=== PATIENT | male | born 1950 | race Caucasian/White ===

== ENCOUNTER → 2017-12-12 07:30 | Outpatient (CLI) | payer MEDICARE, OTHER, SELFPAY ==
[2017-12-12 10:00] LABS: Add Manual Diff / Slide Review NO; Basophils Percent Auto 0.6 % (0-2); Eosinophils Percent Auto 4.9 % (2-4); Hematocrit 47.3 % (41-53); Hemoglobin 16.4 g/dL (13.5-17.5); Lymphocytes Percent Auto 21.5 % (25-40); Mean Corpuscular HGB Conc 34.6 % (30-36); Mean Corpuscular Hemoglobin 34.6 PG (26-34); Mean Corpuscular Volume 99.9 fL (80-100); Monocytes Percent Auto 8.1 % (3-14); Neutrophils Absolute Auto 4800 /uL (3000-5900); Neutrophils Percent Auto 64.9 % (50-75); Platelet Count 245 X10^3/uL (150-400); Red Blood Cell Count 4.74 X10^6/uL (4.5-5.9); Red Cell Distribution Width 12.9 % (11.6-14.8); White Blood Cell Count 7.3 X10^3/uL (4.5-11.0)
[2017-12-12 10:31] LABS: Alanine Aminotransferase 33 IU/L (21-72); Albumin 4.5 g/dL (3.5-5.0); Albumin Globulin Ratio 1.6 (1.0-2.8); Alkaline Phosphatase 70 U/L (38-126); Aspartate Aminotransferase 30 IU/L (17-59); BUN Creatinine Ratio 12.5 (6-22); Bilirubin Total 0.7 mg/dL (0.2-1.3); Blood Urea Nitrogen 10 mg/dL (9-20); Calcium 9.1 mg/dL (8.4-10.2); Carbon Dioxide 27 mmol/L (22-32); Chloride 104 mmol/L (98-107); Cholesterol 136 mg/dL (140-199); Estimated Glomerular Filt Rate > 60.0 mL/min (>60); Globulin 2.9 g/dL (1.7-4.1); Glucose 77 mg/dL (80-110); HDL Cholesterol 74 mg/dL (40-60); HEMOLYSIS < 15 (0-50); LDL Cholesterol Calculated 47 mg/dL (<100); Potassium 4.1 mmol/L (3.4-5.1); Sodium 141 mmol/L (137-145); Total Protein 7.4 g/dL (6.3-8.2); Triglycerides 76 mg/dL (35-150)
[2017-12-12 11:16] LABS: Hep C Virus Ab w/Reflex Quant NEGATIVE s/c (NEGATIVE)
== END ==
PROVIDERS: PCP Internal Medicine; Visit Provider Internal Medicine
DX: I10 Essential (primary) hypertension (principal); E78.00 Pure hypercholesterolemia, unspecified
CPT/HCPCS: 36415; 80053; 80061; 82248; 85025; 86803

== ENCOUNTER → 2018-01-09 08:06 | Outpatient (CLI) | payer MEDICARE, OTHER, SELFPAY ==
--- NOTE | 2018-01-09 | DI.US.S_ITS ---
PROCEDURE: US ABD AORTA ANEURYSM SCREEN INDICATIONS: SCREENING TECHNIQUE: Real time scanning was performed of the aorta and iliac arteries, with image documentation. COMPARISON: [facility], CT, ABDOMEN/PELVIS WITH CONTRAST, 05/20/2016, 8:20. [facility], US, RENAL COMPLETE, 07/09/2016, 13:21. FINDINGS: Aorta: Proximal aortic diameter measures 2.1 cm. Mid-aorta measures 1.7 cm. Distal aortic diameter is 1.3 cm. Iliac arteries: Right common iliac artery measures 1.2 cm. Left common iliac artery measures 1.2 cm. IMPRESSION: Negative for aneurysm. Dictated by: Foster Vasquez M.D. on 01/09/2018 at 10:00 Approved by: Foster Vasquez M.D. on 01/09/2018 at 10:01
== END ==
PROVIDERS: PCP Internal Medicine; Visit Provider Internal Medicine
DX: Z13.6 Encounter for screening for cardiovascular disorders (principal)
CPT/HCPCS: 76706

== ENCOUNTER → 2018-08-07 08:27 | Outpatient (CLI) | payer MEDICARE, OTHER, SELFPAY | PROVIDERS: PCP Internal Medicine | DX: I67.1 Cerebral aneurysm, nonruptured (principal) | CPT/HCPCS: 36415; 86850; 86900; 86901 ==

== ENCOUNTER → 2018-08-11 15:18 | Outpatient (CLI) | payer MEDICARE, OTHER, SELFPAY ==
[2018-08-11 15:57] LABS: Add Manual Diff / Slide Review NO; Basophils Absolute Auto 0 /uL (0-100); Basophils Percent Auto 0.4 % (0-2); Eosinophils Absolute Auto 200 /uL (0-450); Eosinophils Percent Auto 2.2 % (2-4); Hematocrit 44.6 % (41-53); Hemoglobin 14.9 g/dL (13.5-17.5); Lymphocytes Absolute Auto 1700 /uL (1100-4500); Lymphocytes Percent Auto 22.1 % (25-40); Mean Corpuscular HGB Conc 33.5 % (30-36); Mean Corpuscular Volume 98.5 fL (80-100); Monocytes Absolute Auto 800 /uL (0-900); Monocytes Percent Auto 10.5 % (3-14); Neutrophils Absolute Auto 5000 /uL (1500-7000); Neutrophils Percent Auto 64.8 % (50-75); Platelet Count 288 X10^3/uL (150-400); Red Blood Cell Count 4.53 X10^6/uL (4.5-5.9); Red Cell Distribution Width 14.5 % (11.6-14.8); White Blood Cell Count 7.7 X10^3/uL (4.5-11.0)
[2018-08-11 16:03] LABS: Prothrombin Time 11.4 SECONDS (10.1-12.7)
[2018-08-11 16:11] LABS: Alanine Aminotransferase 33 IU/L (21-72); Albumin 4.5 g/dL (3.5-5.0); Albumin Globulin Ratio 1.6 (1.0-2.8); Alkaline Phosphatase 86 U/L (38-126); Aspartate Aminotransferase 31 IU/L (17-59); Bilirubin Total 0.4 mg/dL (0.2-1.3); Blood Urea Nitrogen 19 mg/dL (9-20); Calcium 9.8 mg/dL (8.4-10.2); Carbon Dioxide 28 mmol/L (22-32); Chloride 103 mmol/L (98-107); Estimated Glomerular Filt Rate > 60.0 mL/min (>60); Globulin 2.8 g/dL (1.7-4.1); Glucose 105 mg/dL (80-110); HEMOLYSIS < 15 (0-50); Potassium 4.5 mmol/L (3.4-5.1); Sodium 140 mmol/L (137-145); Total Protein 7.3 g/dL (6.3-8.2)
== END ==
PROVIDERS: Visit Provider Physician Assistant Surgical
DX: I67.1 Cerebral aneurysm, nonruptured (principal)
CPT/HCPCS: 80053; 85025; 85610

== ENCOUNTER → 2019-10-15 14:56 | Outpatient (CLI) | payer MEDICARE, OTHER, SELFPAY ==
[2019-10-16 08:43] LABS: COVID19 Sendout Not Detected (Not Detect)
== END ==
PROVIDERS: Visit Provider Nurse Practitioner
DX: R05 Cough (principal)
CPT/HCPCS: 87635

== ENCOUNTER → 2020-01-27 15:55 | Outpatient (ROUT) | payer MEDICARE, OTHER, SELFPAY ==
[2020-01-28 07:41] LABS: COVID19 Sendout Not Detected (Not Detect)
== END ==
PROVIDERS: Visit Provider Physician Assistant
DX: Z11.59 Encounter for screening for other viral diseases (principal)
CPT/HCPCS: 87635

== ENCOUNTER → 2020-02-21 09:09 | Outpatient (CLI) | payer MEDICARE, OTHER, SELFPAY ==
[2020-02-21 10:39] LABS: Cholesterol 150 mg/dL (140-199); HDL Cholesterol 97 mg/dL (40-60); LDL Cholesterol Calculated 39 mg/dL (<100); Triglycerides 70 mg/dL (35-150)
== END ==
PROVIDERS: Referring Provider Internal Medicine; Visit Provider Internal Medicine
DX: E78.00 Pure hypercholesterolemia, unspecified (principal)
CPT/HCPCS: 36415; 80061

== ENCOUNTER 2021-07-17 08:36 | Observation (INO) | payer MEDICARE, OTHER, SELFPAY ==
[2021-07-17] VITALS (25 sets, daily range): BP systolic 98–214; BP diastolic 61–129; PULSE 75–158; RESP 16–25; TEMP 37–38.1; O2SAT 88–100; BMI 22.9; BMI 22.4
--- NOTE | 2021-07-17 09:01 | DI.RAD.S_ITS ---
PROCEDURE: XR CHEST 1V INDICATIONS: suspected sepsis TECHNIQUE: One view of the chest was acquired. COMPARISON: [facility], CHEST 2 VIEW, 01/16/2007, 11:41. [facility], CHEST 1 VIEW, 06/14/2016, 22:12. FINDINGS: Surgical changes and devices: None. Lungs and pleura: Blunting of the right costophrenic angle which may represent a small right pleural effusion. No focal consolidations. No pneumothorax. Lungs are otherwise clear. Mediastinum: Mediastinal contours appear normal. Heart size is normal. Bones and chest wall: No suspicious bony lesions. Overlying soft tissues appear unremarkable. IMPRESSION: Suspected small right pleural effusion. Otherwise, no acute cardiopulmonary abnormalities or focal consolidations. Dictated by: Jere Hernandez M.D. on 07/17/2021 at 9:19 Approved by: Jere Hernandez M.D. on 07/17/2021 at 9:20
[2021-07-17 09:10] LABS: Add Manual Diff / Slide Review NO; Basophils Absolute Auto 100 /uL (0-100); Basophils Percent Auto 0.5 % (0-2); Eosinophils Absolute Auto 0 /uL (0-450); Eosinophils Percent Auto 0.4 % (2-4); Hematocrit 40.7 % (41-53); Hemoglobin 14.2 g/dL (13.5-17.5); Lymphocytes Absolute Auto 600 /uL (1100-4500); Lymphocytes Percent Auto 5.1 % (25-40); Mean Corpuscular HGB Conc 34.9 % (30-36); Mean Corpuscular Hemoglobin 34.9 PG (26-34); Monocytes Absolute Auto 1100 /uL (0-900); Monocytes Percent Auto 9.5 % (3-14); Neutrophils Absolute Auto 9500 /uL (1500-7000); Neutrophils Percent Auto 84.5 % (50-75); Platelet Count 188 X10^3/uL (150-400); Red Blood Cell Count 4.07 X10^6/uL (4.5-5.9); White Blood Cell Count 11.3 X10^3/uL (4.5-11.0)
--- NOTE | 2021-07-17 09:10 | ED_ITS ---
HPI - Male Genitourinary General Chief complaint: Urogenital-Male Stated complaint: fever/UTI Time Seen by Provider: 07/17/21 08:46 Source: patient Mode of arrival: Ambulatory Limitations: no limitations History of Present Illness HPI Narrative: The patient presents with fever, weakness for 2 days. He denies headache, sore throat, cough or discolored breathing. He has no chest pain. His appetite is normal. He has no nausea, vomiting diarrhea. He had fever at home, none today. He has a history of bladder cancer, and 2016 he underwent cystectomy, prostatectomy and urostomy placement due to the cancer. He has had a couple UTIs since then. His urine seems to be yellow/clear. He has no abdominal pain around the site. He has no back pain, he has no history of pyelonephritis. Related Data Home Medications Medication Instructions Recorded Confirmed amlodipine 5 mg tablet (Norvasc) 5 mg PO QDAY #0 05/19/16 07/17/21 atorvastatin 40 mg tablet (Lipitor) 40 mg PO HS #0 05/19/16 07/17/21 diltiazem HCl 120 mg 120 mg PO HS #0 05/19/16 07/17/21 capsule,extended release 24 hr aspirin 81 mg tablet 81 mg PO BID 07/17/21 07/17/21 Allergies Allergy/AdvReac Type Severity Reaction Status Date / Time No Known Allergies Allergy Uncoded 01/27/20 15:23 Review of Systems Constitutional Constitutional: Denies chills, Reports fatigue, Reports fever(s), Denies headache(s) and Reports malaise Eyes Eyes: Denies blurry vision and Denies change in vision ENT Ears, Nose, Mouth, and Throat: Reports dizziness, Denies otalgia, Denies headache(s), Denies sinus pressure and Denies sore throat Comments: No headache. Cardiovascular Cardiovascular: Denies chest pain, Denies syncope, Denies rapid heart rate and Denies dyspnea Respiratory Respiratory: Denies chest congestion, Denies cough and Denies dyspnea Gastrointestinal Gastrointestinal: Denies abdominal pain, Denies nausea and Denies vomiting Comments: Normal appetite. Genitourinary Genitourinary: Reports as per HPI Musculoskeletal Musculoskeletal: Denies arthralgias, Denies back pain and Reports myalgias Integumentary/Breasts Skin/Breast: Denies lesions, Denies rash and Denies skin pain Neurologic Neurologic: Denies confusion, Reports dizziness, Denies syncope and Denies headache(s) Psychiatric Psychiatric: Denies confusion Endocrine Endocrine: Reports fatigue Hematologic/Lymphatic On Anticoagulants: No Patient History Medical History Bladder cancer HLD (hyperlipidemia) HTN (hypertension) Lung cancer Surgical History H/O pneumonectomy H/O total cystectomy History of prostatectomy Family History Mother Hypertension Father Hypertension Social History household members: spouse Smoking Status: Never smoker alcohol intake: current Smoking Status: Never smoker Substance Use Type: does not use Exam Initial Vital Signs Initial Vital Signs: Vital Signs Pulse Rate 100 H 07/17/21 08:45 Blood Pressure 142/71 H 07/17/21 08:45 Pulse Oximetry 95 07/17/21 08:45 Const General: cooperative, healthy appearing and comfortable [facility] Head: normocephalic and atraumatic Mouth: oral mucosae normal Throat: posterior oropharynx normal Eyes General: appearance normal, both eyes and all related structures Sclera: sclerae normal Cornea: corneas normal Pupils: PERRL EOM: EOM intact bilaterally Neck Neck: No lymphadenopathy Chest Chest: normal inspection of the chest Resp Auscultation: clear to auscultation bilaterally Cardio Rate: regular rate Rhythm: regular rhythm Heart Sounds: S1 normal, S2 normal and no murmurs GI Other: Urostomy tube in the right lower abdomen, with clear yellow fluid. Abdomen is flat, soft, nontender. Bowel sounds are normal. No masses. No guarding rebound. Back/Spine/Pelvis Back: No back tenderness and No CVA tenderness Skin General: no rashes or lesions noted Neuro General: patient alert, patient awake, patient oriented x3 and no focal motor deficits Extrem General: normal to inspection, no pedal edema and no calf tenderness Psych Mental Status: mental status grossly normal Course Course Course Narrative: The patient presented with complaints of fever. Was mildly tachycardic upon arrival. He has no pulmonary symptoms. The UA suggested urinary tract infection. He developed recurrent fever with tachycardia. He had rigors and chills on multiple occasions. IV Levaquin was given. CT showed no traumatic findings accounting for the fever in and rigors. Yet the urine is positive. He was given fluid boluses, as well as antibiotics. Blood cultures were obtained. A repeat lactic acid level had increased. He is septic, with tachycardia, fever and chills with an elevated lactic acid level. His blood pressure is stable. The case was discussed with the Hospital, Dr. Hernandez. The patient be admitted for ongoing care. Orders Ordered: ED Orders 07/17/21 12:40 COVID19 -Nasal swab/Pre-Proc Stat 07/17/21 12:54 CT abdomen pelvis w con Stat 07/17/21 14:44 Lactate (Lactic Acid) Stat Acetaminophen (Acetaminophen 325 Mg Tablet) 975 mg PO Q8HR PRN PRN Reason: pain or fever Enoxaparin Sodium (Enoxaparin 40 Mg/0.4 Ml Syringe) 40 mg SUBCUT DAILY ELADIO Famotidine (Famotidine 20 Mg/2 Ml Vial) 20 mg IV NOW ELADIO Last Admin: 07/17/21 12:11 Dose: 20 mg Documented by: HOANG Ceftriaxone Sodium 1,000 mg/ (Sodium Chloride) 100 mls @ 200 mls/hr IV Q24H ELADIO Naloxone HCl (Naloxone 0.4 Mg/Ml Vial) 0.2 mg IV Q2MIN PRN PRN Reason: Opiate Reversal Ondansetron HCl (Ondansetron 4 Mg Odt) 4 mg PO Q8HR PRN PRN Reason: Nausea And Vomiting Discontinued Medications Acetaminophen (Acetaminophen 325 Mg Tablet) 975 mg PO NOW ONE Stop: 07/17/21 13:21 Last Admin: 07/17/21 14:29 Dose: 975 mg Documented by: RICKY Sodium Chloride (Normal Saline 0.9%) 1,000 mls @ 1,000 mls/hr IV BOLUS ONE Stop: 07/17/21 10:00 Last Infusion: 07/17/21 11:25 Dose: 0 mls/hr Documented by: Admin: 07/17/21 09:44 Dose: 1,000 mls/hr Documented by: HOANG Levofloxacin (Levaquin) 500 mg in 100 mls @ 100 mls/hr IV NOW ONE Stop: 07/17/21 13:11 Last Infusion: 07/17/21 14:21 Dose: 0 mls/hr Documented by: Admin: 07/17/21 12:19 Dose: 100 mls/hr Documented by: HOANG Sodium Chloride (Normal Saline 0.9%) 1,000 mls @ 1,000 mls/hr IV BOLUS ONE Stop: 07/17/21 13:11 Last Infusion: 07/17/21 14:21 Dose: 0 mls/hr Documented by: Admin: 07/17/21 12:19 Dose: 1,000 mls/hr Documented by: HOANG Sodium Chloride (Normal Saline 0.9%) 1,000 mls @ 100 mls/hr IV CONT ELADIO Last Admin: 07/17/21 16:30 Dose: Not Given Documented by: NAKUL Ibuprofen (Ibuprofen 400 Mg Tablet) 800 mg PO NOW ONE Stop: 07/17/21 12:15 Last Admin: 07/17/21 12:18 Dose: 800 mg Documented by: HOANG Ondansetron HCl (Ondansetron 4 Mg/2 Ml Inj) 4 mg IV NOW ONE Stop: 07/17/21 12:42 Last Admin: 07/17/21 12:44 Dose: 4 mg Documented by: HOANG Vital Signs Vital signs: Vital Signs - 8 hr 07/17/21 12:51 07/17/21 12:59 07/17/21 13:00 Temperature 100.5 F H Pulse Rate 124 H 125 H Respiratory Rate 24 25 H Blood Pressure 135/77 112/65 Pulse Oximetry 88 L 91 90 L 07/17/21 13:30 07/17/21 14:00 07/17/21 14:29 Temperature 100.2 F H Pulse Rate 120 H 108 H Respiratory Rate Blood Pressure 114/80 130/66 Pulse Oximetry 95 07/17/21 14:30 07/17/21 14:50 Temperature Pulse Rate 127 H 158 H Respiratory Rate Blood Pressure 150/95 H Pulse Oximetry 90 L 97 MDM - Male Genitourinary Lab Data Result diagrams: 07/17/21 08:54 07/17/21 08:54 Labs: Lab Results 07/17/21 07/17/21 07/17/21 Range/Units 08:54 08:54 08:54 WBC 11.3 H (4.5-11.0) X10^3/uL RBC 4.07 L (4.5-5.9) X10^6/uL Hgb 14.2 (13.5-17.5) g/dL Hct 40.7 L (41-53) % MCV 100.0 (80-100) fL MCH 34.9 H (26-34) PG MCHC 34.9 (30-36) % RDW 13.0 (11.6-14.8) % Plt Count 188 (150-400) X10^3/uL Neut % (Auto) 84.5 H (50-75) % Lymph % (Auto) 5.1 L (25-40) % Iron % (Auto) 9.5 (3-14) % Eos % (Auto) 0.4 L (2-4) % Baso % (Auto) 0.5 (0-2) % Neut # (Auto) 9500 H (3526-7480) /uL Lymph # (Auto) 600 L (4805-7103) /uL Iron # (Auto) 1100 H (0-900) /uL Eos # (Auto) 0 (0-450) /uL Baso # (Auto) 100 (0-100) /uL Sodium 136 L (137-145) mmol/L Potassium 3.5 (3.4-5.1) mmol/L Chloride 100 (98-107) mmol/L Carbon Dioxide 26 (22-32) mmol/L BUN 9 (9-20) mg/dL Creatinine 1.00 (0.66-1.25) mg/dL Estimated GFR > 60.0 (>60) mL/min BUN/Creatinine Ratio 9.0 (6-22) Glucose 114 H (80-110) mg/dL Lactate 0.9 (0.7-2.1) mmol/L Calcium 9.1 (8.4-10.2) mg/dL Total Bilirubin 1.2 (0.2-1.3) mg/dL AST 29 (17-59) IU/L ALT 19 (<50) IU/L Alkaline Phosphatase 82 (38-126) U/L Total Protein 7.8 (6.3-8.2) g/dL Albumin 4.5 (3.5-5.0) g/dL Globulin 3.3 (1.7-4.1) g/dL Albumin/Globulin Ratio 1.4 (1.0-2.8) Lipase 37 (23-300) U/L Procalcitonin 0.66 H (<0.5) ng/mL Urine Color Urine Appearance Urine pH (4.5-8.0) Ur Specific Monument (1.000-1.035) Urine Protein (Negative) Urine Glucose (UA) (Negative) g/dL Urine Ketones (NEGATIVE) Urine Occult Blood (Negative) Urine Nitrate (Negative) Urine Bilirubin (NEGATIVE) Urine Urobilinogen (0.2) E.U./dL Ur Leukocyte Esterase (NEGATIVE) Urine RBC (0-5/HPF) Urine WBC (0-5/HPF) Ur Squamous Epith Cells (0-5/HPF) Amorphous Sediment Urine Bacteria (None) Ur Culture Indicated? SARS-CoV-2 (PCR) (Negative) 07/17/21 07/17/21 07/17/21 Range/Units 09:54 12:40 14:44 WBC (4.5-11.0) X10^3/uL RBC (4.5-5.9) X10^6/uL Hgb (13.5-17.5) g/dL Hct (41-53) % MCV (80-100) fL MCH (26-34) PG MCHC (30-36) % RDW (11.6-14.8) % Plt Count (150-400) X10^3/uL Neut % (Auto) (50-75) % Lymph % (Auto) (25-40) % Iron % (Auto) (3-14) % Eos % (Auto) (2-4) % Baso % (Auto) (0-2) % Neut # (Auto) (6716-6930) /uL Lymph # (Auto) (7476-0660) /uL Iron # (Auto) (0-900) /uL Eos # (Auto) (0-450) /uL Baso # (Auto) (0-100) /uL Sodium (137-145) mmol/L Potassium (3.4-5.1) mmol/L Chloride (98-107) mmol/L Carbon Dioxide (22-32) mmol/L BUN (9-20) mg/dL Creatinine (0.66-1.25) mg/dL Estimated GFR (>60) mL/min BUN/Creatinine Ratio (6-22) Glucose (80-110) mg/dL Lactate 3.1 H (0.7-2.1) mmol/L Calcium (8.4-10.2) mg/dL Total Bilirubin (0.2-1.3) mg/dL AST (17-59) IU/L ALT (<50) IU/L Alkaline Phosphatase (38-126) U/L Total Protein (6.3-8.2) g/dL Albumin (3.5-5.0) g/dL Globulin (1.7-4.1) g/dL Albumin/Globulin Ratio (1.0-2.8) Lipase (23-300) U/L Procalcitonin (<0.5) ng/mL Urine Color Yellow Urine Appearance Sl cloudy Urine pH >= 9.0 H (4.5-8.0) Ur Specific Monument <=1.005 (1.000-1.035) Urine Protein 1+ H (Negative) Urine Glucose (UA) Negative (Negative) g/dL Urine Ketones Negative (NEGATIVE) Urine Occult Blood 2+ H (Negative) Urine Nitrate Positive H (Negative) Urine Bilirubin Negative (NEGATIVE) Urine Urobilinogen 0.2 (0.2) E.U./dL Ur Leukocyte Esterase 3+ H (NEGATIVE) Urine RBC 5-10/hpf H (0-5/HPF) Urine WBC 5-10/hpf H (0-5/HPF) Ur Squamous Epith Cells 0-1 /hpf (0-5/HPF) Amorphous Sediment 2+ Urine Bacteria Many (>30) H (None) Ur Culture Indicated? Specimen cultured SARS-CoV-2 (PCR) Negative (Negative) Imaging Data Chest x-ray: Radiologist's Impression: Chart Viewer Diagnostics Subcategory All Activity ??:?? All Time ??:?? All Subcategories Filter Laboratory Imaging Microbiology Pathology Blood Bank Tests Cardiovascular Other Specialty DATE TYPE STATUS REF RANGE/AUTHOR Hx Today 12:54 Abdomen/Pelvis CT Signed Jere Hernandez Today 09:01 Chest X-Ray Signed Jere Hernandez 01/09/18 00:00 Abdominal Arterial Study US Signed Foster Vasquez 07/09/16 00:00 Radiology - Historical ? 06/14/16 22:07 Radiology - Historical ? 05/21/16 00:00 Radiology - Historical ? 05/20/16 08:06 Radiology - Historical ? 05/20/16 07:49 Radiology - Historical ? 05/19/16 23:03 Radiology - Historical ? Nikos Wallace ED 70, M?1950 MRN#? [id number] ADM ABDOUL,?AC??216?-1? 177.8cm 70.9kg BMI: 22.4kg/m? Acc#? [id number] Full Code Special Indicators No Data to Display Home Meds Confirmed Prescription Monitoring Program MEDICATIONS (INSTRUCTIONS) LAST TAKEN Active amlodipine [Norvasc] 5 mgPOQDAY#0 07/17/21 08:00 aspirin [Adult Aspirin] 81 mgPOBID *Product no longer available 07/17/21 08:00 atorvastatin [Lipitor] 40 mgPOHS#0 07/16/21 21:00 diltiazem HCl 120 mgPOHS#0 07/16/21 21:00 Allergies [No Known Allergies] Problems ? ONSET Sepsis Pancreatic mass History of bladder cancer History of prostatectomy H/O total cystectomy Bladder cancer Pneumonia UTI (urinary tract infection) Sepsis PE (pulmonary thromboembolism) Pyelonephritis Right inguinal hernia Vital Signs Today 20:12 BP 98/61? Pulse 85? Resp 16? Temp 98.6 F? O2 Sat 92? Diagnostics Reports Nikos Wallace??70??M??1950 ? Allergy/Adv: [No Known Allergies] Close Abdomen/Pelvis CT (Signed) Jere Hernandez - 07/17/21 Chest X-Ray (Signed) Jere Hernandez - 07/17/21 Abdominal Arterial Study US (Signed) Foster Vasquez - 01/09/18 Radiology - Historical 07/09/16 Radiology - Historical 06/14/16 Radiology - Historical 05/21/16 Radiology - Historical 05/20/16 Radiology - Historical 05/20/16 Radiology - Historical 05/19/16 Launch?[address] [address] XRay Report Signed Patient: Nikos Wallace MR#: [id number] : 1950 Acct:[id number] Age/Sex: 70 / M Date of Service: 07/17/21 Loc: ED Accession Number: [id number] ?? Procedure: XR chest 1V Ordering Provider: Laci Rose MD PROCEDURE:? XR CHEST 1V ? INDICATIONS:? suspected sepsis ? TECHNIQUE:? One view of the chest was acquired.? ? COMPARISON:? [facility], CHEST 2 VIEW, 01/16/2007, 11:41.? [facility], CHEST 1 VIEW, 06/14/2016, 22:12. ? FINDINGS:? ? Surgical changes and devices:? None.? ? Lungs and pleura:? Blunting of the right costophrenic angle which may represent a small right pleural effusion.? No focal consolidations.? No pneumothorax.? Lungs are otherwise clear. ? Mediastinum:? Mediastinal contours appear normal.? Heart size is normal.? ? Bones and chest wall:? No suspicious bony lesions.? Overlying soft tissues appear unremarkable.? ? IMPRESSION:? Suspected small right pleural effusion.? Otherwise, no acute cardiopulmonary abnormalities or focal consolidations. ? ? Dictated by: Jere Hernandez M.D. on 07/17/2021 at 9:19 ? ? Approved by: Jere Hernandez M.D. on 07/17/2021 at 9:20 ? CT scan - abdomen/pelvis: Radiologist's Impression: Launch?[place] [address] CT Scan Report Signed Patient: Nikos Wallace MR#: [id number] : 1950 Acct:[id number] Age/Sex: 70 / M Date of Service: 07/17/21 Loc: ED Accession Number: [id number] ?? Procedure: CT abdomen pelvis w con Ordering Provider: Laci Rose MD PROCEDURE:? CT ABDOMEN PELVIS W CON ? INDICATIONS:? History of bladder cancer with urostomy.? Urine infection. ? TECHNIQUE:? After the administration of intravenous contrast, axial sections acquired from the lung bases to the pubic symphysis.? Coronal and sagittal reformats were performed.? For radiation dose reduction, the following was used:? automated exposure control, adjustment of mA and/or kV according to patient size.? ? COMPARISON:? [facility], CT, ABDOMEN/PELVIS WITH CONTRAST, 05/20/2016, 8:20. ? FINDINGS:? Image quality:? Excellent.? ? Lung bases:? Mild bibasilar atelectasis.? Small hiatal hernia. Heart:? No significant findings. ? ABDOMEN: Liver: There is diffuse hypoattenuation of the liver parenchyma relative to the spleen compatible with hepatic steatosis.? No suspicious intrahepatic lesions.? Redemonstration of a few hepatic hypodensities which again likely represent cysts or hemangiomas.? These are not significantly changed. Gallbladder:? Unremarkable.? ? Biliary ducts: No intrahepatic or extrahepatic biliary ductal dilatation identified. ? Pancreas:? There is a new 1.5 x 1.0 cm hypodense lesion identified near the pancreatic head (image 26/series 2).? No associated pancreatic ductal dilatation.? No peripancreatic inflammatory changes.? No adjacent adenopathy seen. Spleen:? Unremarkable.? ? Adrenal Glands:? Unremarkable.? ? Kidneys and Ureters:? Stable postsurgical changes from previous cystectomy and bilateral ureteral ileal conduit.? There is mild enhancement of the ureteral wall bilaterally.? No evidence for obstructive uropathy.? No definite uroliths.? Previously described striated nephrogram of the bilateral renal cortices is not appreciated on today's study.? Bilateral ureteral conduit with ostomy noted at the right mid to upper abdomen.? No abnormal enhancing fluid collections seen.? No acute inflammatory changes. ? Stomach and Bowel:? Stomach, small bowel loops, and colon are unremarkable.? Moderate scattered colonic diverticula without evidence for acute diverticulitis.? No a reas of abnormal/asymmetric bowel wall thickening.? No evidence for bowel obstruction. Peritoneum:? No abnormal intraperitoneal fluid.? No free air.? ? Ventral Wall: ? No hernias.? Abdominal Nodes:? No retroperitoneal or mesenteric adenopathy by size criteria.? Vessels:? Aorta and inferior vena cava are normal in size.? Scattered atherosclerotic calcifications of the abdominal aorta and iliac vessels without aneurysmal dilatation.? The inferior vena cava appears patent. PELVIS: Pelvic Organs:? Unremarkable.? ? Bladder:? Status post cystectomy. Pelvic Nodes: No enlarged lymph nodes.? Miscellaneous: No hernias are seen. ? ? ? Bones:? Unremarkable.? ? ? IMPRESSION:? ? 1. Stable postsurgical changes from cystectomy and bilateral ureteral ileal conduit.? Ostomy over the right upper anterior abdominal wall also appears unchanged.? There is minimal wall thickening of the bilateral ureters which may be sequela of surgery.? However, an infectious uropathy not excluded given reported history of infected urine.? Previously noted pyelonephritis not appreciated on today's examination.? No evidence for obstructive uropathy or urolithiasis. ? 2. New 1.5 cm hypodense lesion within the pancreatic head without evidence for pancreatic ductal dilatation.? This may represent a pancreatic cystic neoplasm.? Recommend further characterization with nonemergent/outpatient contrast enhanced CT or MRI using pancreatic mass protocol.? ? 3. Colonic diverticulosis without evidence for acute diverticulitis. ? 4. Hiatal hernia. ? 5. Findings compatible with mild hepatic steatosis. ? 6. Atherosclerosis.? Dictated by: Jere Hernandez M.D. on 07/17/2021 at 12:52 ? ? Approved by: Jere Hernandez M.D. on 07/17/2021 at 13:07 ? ECG Data Attestation: I personally reviewed and interpreted this ECG as follows: Critical Care Time Critical Care Time Critical Care Time: Yes Total Critical Care Time: 45 Attestation: Critical care time includes initial patient assessment, review of medical records, review of lab and radiology data. Time includes clinical decision making. Patient was informed of his clinical needs. Patient is informed of the CT finding of a pancreatic mass. Case was discussed with admitting hospitalist. Discharge Plan Departure Patient Disposition: Admitted as Observation Clinical Impression: Sepsis, UTI (urinary tract infection), Pancreatic mass, History of bladder cancer Admit Date/Time: 07/17/21 15:03 Admit Provider: Eyad Hernandez
[2021-07-17 09:15] LABS: Alanine Aminotransferase 19 IU/L (<50); Albumin 4.5 g/dL (3.5-5.0); Albumin Globulin Ratio 1.4 (1.0-2.8); Alkaline Phosphatase 82 U/L (38-126); Aspartate Aminotransferase 29 IU/L (17-59); Bilirubin Total 1.2 mg/dL (0.2-1.3); Blood Urea Nitrogen 9 mg/dL (9-20); Calcium 9.1 mg/dL (8.4-10.2); Carbon Dioxide 26 mmol/L (22-32); Chloride 100 mmol/L (98-107); Estimated Glomerular Filt Rate > 60.0 mL/min (>60); Globulin 3.3 g/dL (1.7-4.1); Glucose 114 mg/dL (80-110); HEMOLYSIS < 15 (0-50); Lactate (Lactic Acid) 0.9 mmol/L (0.7-2.1); Lipase 37 U/L (23-300); Potassium 3.5 mmol/L (3.4-5.1); Sodium 136 mmol/L (137-145); Total Protein 7.8 g/dL (6.3-8.2)
[2021-07-17 09:31] LABS: Procalcitonin 0.66 ng/mL (<0.5)
[2021-07-17] MEDS: SODIUM CHLORIDE 0.9% 1,000 ML 1000 ML IV ×2 (09:44→12:19)
[2021-07-17 09:57] LABS: Appearance Urine UA SL CLOUDY; Bilirubin Urine UA NEGATIVE (NEGATIVE); Color Urine UA YELLOW; Glucose Urine UA NEGATIVE (Negative); Ketones Urine UA NEGATIVE (NEGATIVE); Leukocyte Esterase Urine UA 3+ (NEGATIVE); Nitrite Urine UA POSITIVE (Negative); Occult Blood Urine UA 2+ (Negative); Protein Urine UA 1+ (Negative); Specific Gravity Urine UA <=1.005 (1.000-1.035); Urobilinogen Urine UA 0.2 E.U./dL (0.2); pH Urine UA >= 9.0 (4.5-8.0)
[2021-07-17 10:09] LABS: Amorphous Sediment Urine 2+; Bacteria Urine Many (>30); Culture Indicated Urine Specimen Cultured; RBC Urine 5-10/HPF (0-5/HPF); Squamous Epithelial Cell Urine 0-1 /HPF (0-5/HPF); WBC Urine 5-10/HPF (0-5/HPF)
[2021-07-17] MEDS: FAMOTIDINE 20 MG/2 ML VIAL IV (12:11)
[2021-07-17] MEDS: IBUPROFEN 400 MG TABLET 800 MG PO (12:18)
[2021-07-17] MEDS: levoFLOXacin 500 MG/100 ML PIGGYBACK 100 MG IV (12:19)
--- NOTE | 2021-07-17 12:27 | PC.NURSE ---
1200 pt shaking/shivering with increased heart rate and bp. notified md. urine cx. fever not returned at moment. c/o heartburn 1220 levaquin infusion and ns bolus #2 started. ibuprofen po for pain and possible fever returning. pepcid iv for heartburn at bs.
[2021-07-17] MEDS: ONDANSETRON 4 MG/2 ML INJ IV (12:44)
--- NOTE | 2021-07-17 12:54 | DI.CT.S_ITS ---
PROCEDURE: CT ABDOMEN PELVIS W CON INDICATIONS: History of bladder cancer with urostomy. Urine infection. TECHNIQUE: After the administration of intravenous contrast, axial sections acquired from the lung bases to the pubic symphysis. Coronal and sagittal reformats were performed. For radiation dose reduction, the following was used: automated exposure control, adjustment of mA and/or kV according to patient size. COMPARISON: [facility], CT, ABDOMEN/PELVIS WITH CONTRAST, 05/20/2016, 8:20. FINDINGS: Image quality: Excellent. Lung bases: Mild bibasilar atelectasis. Small hiatal hernia. Heart: No significant findings. ABDOMEN: Liver: There is diffuse hypoattenuation of the liver parenchyma relative to the spleen compatible with hepatic steatosis. No suspicious intrahepatic lesions. Redemonstration of a few hepatic hypodensities which again likely represent cysts or hemangiomas. These are not significantly changed. Gallbladder: Unremarkable. Biliary ducts: No intrahepatic or extrahepatic biliary ductal dilatation identified. Pancreas: There is a new 1.5 x 1.0 cm hypodense lesion identified near the pancreatic head (image 26/series 2). No associated pancreatic ductal dilatation. No peripancreatic inflammatory changes. No adjacent adenopathy seen. Spleen: Unremarkable. Adrenal Glands: Unremarkable. Kidneys and Ureters: Stable postsurgical changes from previous cystectomy and bilateral ureteral ileal conduit. There is mild enhancement of the ureteral wall bilaterally. No evidence for obstructive uropathy. No definite uroliths. Previously described striated nephrogram of the bilateral renal cortices is not appreciated on today's study. Bilateral ureteral conduit with ostomy noted at the right mid to upper abdomen. No abnormal enhancing fluid collections seen. No acute inflammatory changes. Stomach and Bowel: Stomach, small bowel loops, and colon are unremarkable. Moderate scattered colonic diverticula without evidence for acute diverticulitis. No areas of abnormal/asymmetric bowel wall thickening. No evidence for bowel obstruction. Peritoneum: No abnormal intraperitoneal fluid. No free air. Ventral Wall: No hernias. Abdominal Nodes: No retroperitoneal or mesenteric adenopathy by size criteria. Vessels: Aorta and inferior vena cava are normal in size. Scattered atherosclerotic calcifications of the abdominal aorta and iliac vessels without aneurysmal dilatation. The inferior vena cava appears patent. PELVIS: Pelvic Organs: Unremarkable. Bladder: Status post cystectomy. Pelvic Nodes: No enlarged lymph nodes. Miscellaneous: No hernias are seen. Bones: Unremarkable. IMPRESSION: 1. Stable postsurgical changes from cystectomy and bilateral ureteral ileal conduit. Ostomy over the right upper anterior abdominal wall also appears unchanged. There is minimal wall thickening of the bilateral ureters which may be sequela of surgery. However, an infectious uropathy not excluded given reported history of infected urine. Previously noted pyelonephritis not appreciated on today's examination. No evidence for obstructive uropathy or urolithiasis. 2. New 1.5 cm hypodense lesion within the pancreatic head without evidence for pancreatic ductal dilatation. This may represent a pancreatic cystic neoplasm. Recommend further characterization with nonemergent/outpatient contrast enhanced CT or MRI using pancreatic mass protocol. 3. Colonic diverticulosis without evidence for acute diverticulitis. 4. Hiatal hernia. 5. Findings compatible with mild hepatic steatosis. 6. Atherosclerosis. Dictated by: Jere Hernandez M.D. on 07/17/2021 at 12:52 Approved by: Jere Hernandez M.D. on 07/17/2021 at 13:07
[2021-07-17 13:28] LABS: COVID19 -Nasal RAPID Negative (Negative)
[2021-07-17] MEDS: ACETAMINOPHEN 325 MG TABLET 975 MG PO (14:29)
--- NOTE | 2021-07-17 14:34 | PC.NURSE ---
Addendum entered by Aneta Love R.N. 07/17/21 14:58: Notified provider of sustained HR in 150's. Patient is shaking less and rhythm is more organized and less artifact on bedside. New orders to be placed. Original Note: Patient again in rigors, oral temp after drinking cold water was 100.2. Notified provider of change in condition.
[2021-07-17 15:01] LABS: Lactate (Lactic Acid) 3.1 mmol/L (0.7-2.1)
[2021-07-17 16:47] LABS: Reflexed Lactate in 2 Hours Y
[2021-07-17 17:42] LABS: Lactate 2HR (Lactic Acid Rflx) 0.8 mmol/L (0.7-2.1)
--- NOTE | 2021-07-17 17:46 | P.HP_ITS ---
History of Present Illness History of Present Illness Date Patient Seen: 07/17/21 Time Patient Seen: 17:46 Chief complaint: fever/UTI Narrative: This is a 70-year-old male with a history of bladder cancer status post radical cystectomy and urostomy, multiple prior UTIs, hypertension, hyperlipidemia who presented to the emergency room with continued fevers and malaise over the past 2 days. Patient reports that he has had fever to as high as 102.4 at home over the past 2 days, with subjective chills and shaking. With shaking he has become nauseous but has not had any vomiting. He reports no diarrhea. He denies any cough, chest pain, palpitations, shortness of breath. He did have some abdominal pain with high fever. He also noticed a change and darkening of his urine from the urostomy. He denies any lower extremity edema or skin rash. In the emergency room, he had a fever to 100.5, and the patient was tachycardic but well-appearing. EKG shows a sinus tachycardia with some ST depressions but no ST elevations. Laboratory evaluation did not include a troponin, but 1 is being checked currently. Cbc showed AA mild leukocytosis with WBC 11.3, the remainder his CBC as well as chemistries were unremarkable. Procalcitonin was mildly elevated at 0.66. Urinalysis appeared grossly infected with positive nitrates, leuk esterase, 5-10 wbc's and 5-10 rbc's with minimal squamous cells and many bacteria. Specimen was sent for culture. COVID-19 testing was negative. Chest x-ray did show a possible small right pleural effusion, CT scan was performed which did not show evidence of pyelonephritis, only some mild ureteral inflammation, and postsurgical changes. He was admitted for further observation. Patient History Medical History Bladder cancer HLD (hyperlipidemia) HTN (hypertension) Lung cancer Surgical History H/O pneumonectomy H/O total cystectomy History of prostatectomy Family & Social History Family History Mother Hypertension Father Hypertension Social History: household members spouse Prior Living Arrangements House Safety & Behavioral: Feels Safe in Current Yes Environment Been Physically Hurt or No Threatened By a Person Suicidal Ideation Description None Suicide Plan Description No Plan Tobacco & Substance use: Smoking Status Never smoker alcohol intake current alcohol intake frequency 0-2 drinks per day Substance Use Type does not use Meds Home Medications and Allergies Home Medications Medication Instructions Recorded Confirmed Type amlodipine 5 mg tablet (Norvasc) 5 mg PO QDAY #0 05/19/16 07/17/21 History atorvastatin 40 mg tablet (Lipitor) 40 mg PO HS #0 05/19/16 07/17/21 History diltiazem HCl 120 mg 120 mg PO HS #0 05/19/16 07/17/21 History capsule,extended release 24 hr aspirin 81 mg tablet 81 mg PO BID 07/17/21 07/17/21 History Allergies Allergy/AdvReac Type Severity Reaction Status Date / Time No Known Allergies Allergy Uncoded 01/27/20 15:23 Review of Systems Review of Systems Narrative: All other systems reviewed with the patient and are negative unless otherwise st ated. Exam Vital Signs (past 8 hours): - 07/17/21 10:00 07/17/21 10:01 07/17/21 10:30 Temperature 99 F Pulse Rate 76 76 75 Respiratory Rate 20 20 Blood Pressure 127/68 139/73 Pulse Oximetry 92 92 95 07/17/21 11:00 07/17/21 11:30 07/17/21 11:31 Temperature 99 F Pulse Rate 76 87 87 Respiratory Rate 20 22 Blood Pressure 131/85 162/91 H Pulse Oximetry 94 93 92 07/17/21 12:00 07/17/21 12:01 07/17/21 12:04 Temperature 98.9 F Pulse Rate 108 H 115 H Respiratory Rate 22 24 Blood Pressure 180/129 H 214/107 H Pulse Oximetry 92 07/17/21 12:36 07/17/21 12:51 07/17/21 12:59 Temperature 100.5 F H Pulse Rate 134 H 124 H Respiratory Rate 24 24 Blood Pressure 135/77 Pulse Oximetry 91 88 L 91 07/17/21 13:00 07/17/21 13:30 07/17/21 14:00 Temperature Pulse Rate 125 H 120 H 108 H Respiratory Rate 25 H Blood Pressure 112/65 114/80 130/66 Pulse Oximetry 90 L 95 07/17/21 14:29 07/17/21 14:30 07/17/21 14:50 Temperature 100.2 F H Pulse Rate 127 H 158 H Respiratory Rate Blood Pressure 150/95 H Pulse Oximetry 90 L 97 07/17/21 16:53 Temperature 100.0 F H Pulse Rate 135 H Respiratory Rate 17 Blood Pressure 139/63 Pulse Oximetry 93 Oxygen Delivery Method Nasal Cannula Oxygen Flow Rate 0 Narrative Exam Narrative: General:? Patient is well developed and well nourished, in no distress at this time. HEENT:? Normocephalic, atraumatic, extraocular muscles intact, oral pharynx is clear and mucous membranes are moist. Neck: supple and symmetric, trachea is midline, no cervical adenopathy. Negative for JVD Chest:? Normal AP diameter and contour without kyphoscoliosis, no tachypnea, equal chest rise bilaterally. Lungs:? CTA b/l no wheezing rhonchi or rales. Cardio:?RRR no m/r/g. Abdomen: S NT ND. No CVA tenderness. Urostomy well appearing with very light clear yellow urine. Musculoskeletal:? Muscle strength and tone are equal within normal limits, no deformity. Extremities: No edema or joint effusions. No cyanosis or clubbing. Skin:? Pale,? Warm to touch,dry and intact without rashes, ulcerations or petechiae.? Neuro:? Alert and orientated x3,? sensation to touch intact in all extremities, no gross deficits noted of cranial nerves. Psych:? Patient has a well-kept appearance, appropriate affect, mental status attitude thought context and judgment are appropriate for age. Objective ECG Impression: Sinus tachycardia with ST depressions present in precordial leads. Imaging Chest x-ray: My impression: Possible small right pleural effusion verses right atelectasis given prior history of pneumonectomy for lung cancer. No obvious focal infiltrates or signs of volume overload. Heart size is within normal limits. Labs Result Diagrams: 07/17/21 08:54 07/17/21 08:54 Labs: Laboratory Results - last 24 hr 07/17/21 07/17/21 07/17/21 08:54 08:54 08:54 WBC 11.3 H RBC 4.07 L Hgb 14.2 Hct 40.7 L MCV 100.0 MCH 34.9 H MCHC 34.9 RDW 13.0 Plt Count 188 Neut % (Auto) 84.5 H Lymph % (Auto) 5.1 L [place] % (Auto) 9.5 Eos % (Auto) 0.4 L Baso % (Auto) 0.5 Neut # (Auto) 9500 H Lymph # (Auto) 600 L [place] # (Auto) 1100 H Eos # (Auto) 0 Baso # (Auto) 100 Sodium 136 L Potassium 3.5 Chloride 100 Carbon Dioxide 26 BUN 9 Creatinine 1.00 Estimated GFR > 60.0 BUN/Creatinine Ratio 9.0 Glucose 114 H Lactate 0.9 Calcium 9.1 Total Bilirubin 1.2 AST 29 ALT 19 Alkaline Phosphatase 82 Total Protein 7.8 Albumin 4.5 Globulin 3.3 Albumin/Globulin Ratio 1.4 Lipase 37 Procalcitonin 0.66 H Urine Color Urine Appearance Urine pH Ur Specific [place] Urine Protein Urine Glucose (UA) Urine Ketones Urine Occult Blood Urine Nitrate Urine Bilirubin Urine Urobilinogen Ur Leukocyte Esterase Urine RBC Urine WBC Ur Squamous Epith Cells Amorphous Sediment Urine Bacteria Ur Culture Indicated? SARS-CoV-2 (PCR) 07/17/21 07/17/21 07/17/21 09:54 12:40 14:44 WBC RBC Hgb Hct MCV MCH MCHC RDW Plt Count Neut % (Auto) Lymph % (Auto) [place] % (Auto) Eos % (Auto) Baso % (Auto) Neut # (Auto) Lymph # (Auto) [place] # (Auto) Eos # (Auto) Baso # (Auto) Sodium Potassium Chloride Carbon Dioxide BUN Creatinine Estimated GFR BUN/Creatinine Ratio Glucose Lactate 3.1 H Calcium Total Bilirubin AST ALT Alkaline Phosphatase Total Protein Albumin Globulin Albumin/Globulin Ratio Lipase Procalcitonin Urine Color Yellow Urine Appearance Sl cloudy Urine pH >= 9.0 H Ur Specific [place] <=1.005 Urine Protein 1+ H Urine Glucose (UA) Negative Urine Ketones Negative Urine Occult Blood 2+ H Urine Nitrate Positive H Urine Bilirubin Negative Urine Urobilinogen 0.2 Ur Leukocyte Esterase 3+ H Urine RBC 5-10/hpf H Urine WBC 5-10/hpf H Ur Squamous Epith Cells 0-1 /hpf Amorphous Sediment 2+ Urine Bacteria Many (>30) H Ur Culture Indicated? Specimen cultured SARS-CoV-2 (PCR) Negative 07/17/21 17:24 WBC RBC Hgb Hct MCV MCH MCHC RDW Plt Count Neut % (Auto) Lymph % (Auto) [place] % (Auto) Eos % (Auto) Baso % (Auto) Neut # (Auto) Lymph # (Auto) [place] # (Auto) Eos # (Auto) Baso # (Auto) Sodium Potassium Chloride Carbon Dioxide BUN Creatinine Estimated GFR BUN/Creatinine Ratio Glucose Lactate 0.8 Calcium Total Bilirubin AST ALT Alkaline Phosphatase Total Protein Albumin Globulin Albumin/Globulin Ratio Lipase Procalcitonin Urine Color Urine Appearance Urine pH Ur Specific [place] Urine Protein Urine Glucose (UA) Urine Ketones Urine Occult Blood Urine Nitrate Urine Bilirubin Urine Urobilinogen Ur Leukocyte Esterase Urine RBC Urine WBC Ur Squamous Epith Cells Amorphous Sediment Urine Bacteria Ur Culture Indicated? SARS-CoV-2 (PCR) Assessment & Plan Assessment & Plan narrative: This is a 70-year-old male with a history of bladder cancer status post radical cystectomy and urostomy, multiple prior UTIs, hypertension, hyperlipidemia who presented to the emergency room with continued fevers and malaise over the past 2 days. 1. Acute cystitis secondary to urostomy after cystectomy for bladder cancer - given levaquin in the ER, change to ceftriaxone starting tomorrow. Follow up urine and blood cultures sent in the ER. - tachycardic, sinus on EKG with ST depressions but no chest pain. - has a history of many different urinary infections and bacteria in the past. Most recent UTI was 2 years ago in [place] per patient. - CXR with possible R pleural effusion, but no consolidation and does have history of pneumonectomy which could explain finding. CT scan also noted atelectasis an no evidence of fluid. 2. ST depressions, tachycardia - patient without chest pain but ST depressions on EKG with tachycardia. - will check troponin - consider TTE but no current shortness of breath or chest pain. 3. Hypertension -can continue home diltiazem and amlodipine as he is borderline hypertensive currently despite his infection. 4. Hyperlipidemia -continue home medications Code: Full as discussed with the patient, surrogate is patient's . Dispo: Admitted under observation status DVT: Lovenox daily I have utilized all available immediate resources to obtain, update, or review the patient's current medications. COVID-19 COVID-19 status: Negative Result date/Date tested (Pos, Neg/Pending): 07/17/21 Time Spent With Patient Critical Care time: I spent a total of [] minutes of critical care time on this patient's care today; this time is exclusive of procedural time. Quality VTE Deep Vein Thrombosis/Pulmonary Embolism Present on Admission: No MIPS - Admit I confirm the patient?s Advance Care Plan is present, Code status is documented, Surrogate decision maker is in patient?s record [If Yes, STOP here]: Yes
--- NOTE | 2021-07-17 19:30 | PC.NURSE ---
Pt arrived from ED this afternoon A&Ox3. Tachycardic with low grade temperature. He denies any pain. Large amount of clear yellow urine in his urostomy bag. He tolerates dinner and is sleeping on and off. HR down to 80's. Per MD orders EKG done at bedside, MD notified of results, which noted to be improved. Continuous monitoring.
[2021-07-17 23:22] LABS: Acinetobacter baumannii Not Detected (Not Detect); Enterobacteriaceae species Detected (Not Detect); Enterococcus species Not Detected (Not Detect); KPC (carbapenem-resist gene) Not Detected (Not Detect); Listeria monocytogenes Not Detected (Not Detect); Staphylococcus species Not Detected (Not Detect); Streptococcus agalactiae (Gr B Not Detected (Not Detect); Streptococcus pneumonia Not Detected (Not Detect); Streptococcus pyogenes (Gr A) Not Detected (Not Detect); Streptococcus species Not Detected (Not Detect)
[2021-07-17 23:23] LABS: Candida albicans Not Detected (Not Detect); Candida glabrata Not Detected (Not Detect); Candida krusei Not Detected (Not Detect); Candida parapsilosis Not Detected (Not Detect); Candida tropicalis Not Detected (Not Detect); E. coli Detected (Not Detect); Enterobacter cloacae complex Not Detected (Not Detect); Haemophilus influenzae Not Detected (Not Detect); Neisseria meningitidis Not Detected (Not Detect); Proteus species Not Detected (Not Detect); Pseudomonas aeruginosa Not Detected (Not Detect); Serratia marcescens Not Detected (Not Detect)
[2021-07-18] VITALS: PULSE 66; RESP 16
[2021-07-18 05:35] LABS: Add Manual Diff / Slide Review NO; Basophils Absolute Auto 0 /uL (0-100); Basophils Percent Auto 0.3 % (0-2); Eosinophils Absolute Auto 100 /uL (0-450); Eosinophils Percent Auto 0.6 % (2-4); Hematocrit 37.4 % (41-53); Hemoglobin 13.3 g/dL (13.5-17.5); Lymphocytes Absolute Auto 700 /uL (1100-4500); Lymphocytes Percent Auto 6.7 % (25-40); Mean Corpuscular HGB Conc 35.6 % (30-36); Mean Corpuscular Hemoglobin 35.8 PG (26-34); Mean Corpuscular Volume 100.6 fL (80-100); Monocytes Absolute Auto 1000 /uL (0-900); Monocytes Percent Auto 10.6 % (3-14); Neutrophils Absolute Auto 8100 /uL (1500-7000); Neutrophils Percent Auto 81.8 % (50-75); Platelet Count 158 X10^3/uL (150-400); Red Blood Cell Count 3.72 X10^6/uL (4.5-5.9); Red Cell Distribution Width 13.3 % (11.6-14.8); White Blood Cell Count 9.8 X10^3/uL (4.5-11.0)
[2021-07-18 05:38] LABS: Alanine Aminotransferase 22 IU/L (<50); Albumin 3.7 g/dL (3.5-5.0); Albumin Globulin Ratio 1.2 (1.0-2.8); Alkaline Phosphatase 62 U/L (38-126); Aspartate Aminotransferase 34 IU/L (17-59); BUN Creatinine Ratio 14.1 (6-22); Bilirubin Total 0.7 mg/dL (0.2-1.3); Blood Urea Nitrogen 12 mg/dL (9-20); Carbon Dioxide 27 mmol/L (22-32); Chloride 106 mmol/L (98-107); Estimated Glomerular Filt Rate > 60.0 mL/min (>60); Glucose 104 mg/dL (80-110); HEMOLYSIS < 15 (0-50); Potassium 3.5 mmol/L (3.4-5.1); Sodium 138 mmol/L (137-145); Total Protein 6.7 g/dL (6.3-8.2)
[2021-07-18 05:53] VITALS: BP 111/63; PULSE 67; RESP 16; TEMP 36.6; O2SAT 94
[2021-07-18 05:55] LABS: Procalcitonin 28.7 ng/mL (<0.5)
[2021-07-18 08:00] VITALS: BP 117/58; PULSE 79; RESP 18; TEMP 37.1; O2SAT 92
--- NOTE | 2021-07-18 08:42 | PC.NURSE ---
Addendum entered by Duncan Crawford R.N. 07/18/21 16:06: Pt A&O offers no overt complaint. Pt independent in room. Original Note: Pt alert and oriented offers no overt c/o and anticipates possibly going home today. Taking b'fast without difficulty.
[2021-07-18] MEDS: ENOXAPARIN 40 MG/0.4 ML SYRINGE SUBCUT (09:23)
--- NOTE | 2021-07-18 10:36 | CM.DANOTE ---
DCP: Case received, EMR reviewed and met with patient. Introduced self and role. Was able to obtain information regarding patient's baseline activity status prior to hospitalization. DCP assessment completed with information currently available. Patient is a 70 year old male who admitted yesterday afternoon to the care of the hospitalist team. PCP: Dr. Cline. Payer: confirmed: Medicare/[facility]. Patient came to the hospital via private vehicle secondary to having a fever. Patient holds diagnosis of UTI. Patient does have a urostomy. Met with patient. He is pleasant, alert and oriented. Patient resides here in [place] with his spouse, Mariza. He is independent at his baseline, and gets his urostomy supplies on line. Patient indicated he has had his urostomy for about 6 years, and doesn't have any sensation of having a UTI. P: DCP to continue to follow. Patient should be able to go home when he is deemed medically stable. Angelique Marquis RN/Entry Level Account Executive Discharge Planning/Care Management CM Discharge Assessment Start: 07/18/21 10:35 Freq: Status: Active Protocol: Document 07/18/21 10:35 (Rec: 07/18/21 10:36 [id number]) Discharge Planning Assessment Assigned Oven Worker Angelique Marquis RN/Entry Level Account Executive Advance Directives? Yes Advance Directives on File No History Provided By Patient,Medical Record Prior Living Arrangements House Household Members spouse Type of transporation used prior to Drives own vehicle admit Independent with ADL's Yes Is patient alert and oriented? Yes Caregiver for Another No Barriers to Discharge No Discharge Plan Home Transportation Arrangement Spouse Referrals Initiated None needed Whiteboard Updated in Patient Room with Yes name and ext. # of Oven Worker Review Status In Process Next Review Type Continued Stay Review
[2021-07-18 12:00] VITALS: BP 109/69; PULSE 71; RESP 20; TEMP 36.5; O2SAT 94
--- NOTE | 2021-07-18 12:56 | PM.PN.1 ---
Subjective Subjective Date Patient Seen: 07/18/21 Time Patient Seen: 12:56 Interval history: Patient is feeling much better. He does have a little bit of back pain just from having the shaking chills. He is tolerating p.o. without difficulty. Still feels weak. No headache or chest pain or shortness of breath No diarrhea or abdominal pain. No flank pain Afebrile for about 18 hours 12 point review of systems is otherwise negative Exam Vital Signs (past 8 hours): - 07/18/21 05:53 07/18/21 08:00 07/18/21 12:00 Temperature 97.9 F 98.8 F 97.7 F Pulse Rate 67 79 71 Respiratory Rate 16 18 20 Blood Pressure 111/63 117/58 L 109/69 Pulse Oximetry 94 92 94 Oxygen Delivery Method Nasal Cannula Oxygen Flow Rate 0 Narrative Exam Narrative: Afebrile, vital signs are stable Alert and oriented x3 Very pleasant man HEENT unremarkable Neck: Supple without adenopathy Chest: Clear to auscultation without wheezes rhonchi or crackles Cor: Regular rate and rhythm without a murmur Abdomen: Positive bowel sounds, soft, nontender, nondistended, no hepatosplenomegaly. No flank tenderness Extremities no edema, pulses intact Skin no rashes Neurologic exam nonfocal Objective Labs Result Diagrams: 07/18/21 05:15 07/18/21 05:15 Labs: Laboratory Results - last 24 hr 07/17/21 07/17/21 07/17/21 08:54 12:40 14:44 WBC RBC Hgb Hct MCV MCH MCHC RDW Plt Count Neut % (Auto) Lymph % (Auto) [place] % (Auto) Eos % (Auto) Baso % (Auto) Neut # (Auto) Lymph # (Auto) [place] # (Auto) Eos # (Auto) Baso # (Auto) Sodium Potassium Chloride Carbon Dioxide BUN Creatinine Estimated GFR BUN/Creatinine Ratio Glucose Lactate 3.1 H Calcium Total Bilirubin AST ALT Alkaline Phosphatase Troponin I Total Protein Albumin Globulin Albumin/Globulin Ratio Procalcitonin A. baumannii (PCR) Not detected Karin albicans (PCR) Not detected C. glabrata (PCR) Not detected C. krusei (PCR) Not detected C. parapsilosis (PCR) Not detected C. tropicalis (PCR) Not detected SARS-CoV-2 (PCR) Negative Enterobacteriac sp PCR Detected H E. cloacae complex PCR Not detected Enterococcus sp PCR Not detected E. coli (PCR) Detected H H. influenzae (PCR) Not detected Klebsiella oxytoca PCR Not detected Klebsiella pneumoniae Not detected List. monocytogenes PCR Not detected N. meningitidis (PCR) Not detected Proteus species (PCR) Not detected Serratia marcescens PCR Not detected Staphylococcus sp PCR Not detected Staph aureus (PCR) Not detected mecA-Methicil Res Gene Not Reportable Streptococcus sp PCR Not detected Group A Strep (PCR) Not detected Strep agalactiae (PCR) Not detected Strep pneumoniae (PCR) Not detected P. aeruginosa (PCR) Not detected Julia/B-Vanco Res Genes Not Reportable KPC-Carbap Res Gene PCR Not detected 07/17/21 07/17/21 07/18/21 17:24 18:46 05:15 WBC 9.8 RBC 3.72 L Hgb 13.3 L Hct 37.4 L MCV 100.6 H MCH 35.8 H MCHC 35.6 RDW 13.3 Plt Count 158 Neut % (Auto) 81.8 H Lymph % (Auto) 6.7 L [place] % (Auto) 10.6 Eos % (Auto) 0.6 L Baso % (Auto) 0.3 Neut # (Auto) 8100 H Lymph # (Auto) 700 L [place] # (Auto) 1000 H Eos # (Auto) 100 Baso # (Auto) 0 Sodium Potassium Chloride Carbon Dioxide BUN Creatinine Estimated GFR BUN/Creatinine Ratio Glucose Lactate 0.8 Calcium Total Bilirubin AST ALT Alkaline Phosphatase Troponin I 0.020 Total Protein Albumin Globulin Albumin/Globulin Ratio Procalcitonin A. baumannii (PCR) Karin albicans (PCR) C. glabrata (PCR) C. krusei (PCR) C. parapsilosis (PCR) C. tropicalis (PCR) SARS-CoV-2 (PCR) Enterobacteriac sp PCR E. cloacae complex PCR Enterococcus sp PCR E. coli (PCR) H. influenzae (PCR) Klebsiella oxytoca PCR Klebsiella pneumoniae List. monocytogenes PCR N. meningitidis (PCR) Proteus species (PCR) Serratia marcescens PCR Staphylococcus sp PCR Staph aureus (PCR) mecA-Methicil Res Gene Streptococcus sp PCR Group A Strep (PCR) Strep agalactiae (PCR) Strep pneumoniae (PCR) P. aeruginosa (PCR) Julia/B-Vanco Res Genes KPC-Carbap Res Gene PCR 07/18/21 05:15 WBC RBC Hgb Hct MCV MCH MCHC RDW Plt Count Neut % (Auto) Lymph % (Auto) [place] % (Auto) Eos % (Auto) Baso % (Auto) Neut # (Auto) Lymph # (Auto) [place] # (Auto) Eos # (Auto) Baso # (Auto) Sodium 138 Potassium 3.5 Chloride 106 Carbon Dioxide 27 BUN 12 Creatinine 0.85 Estimated GFR > 60.0 BUN/Creatinine Ratio 14.1 Glucose 104 Lactate Calcium 8.0 L Total Bilirubin 0.7 AST 34 ALT 22 Alkaline Phosphatase 62 Troponin I Total Protein 6.7 Albumin 3.7 Globulin 3.0 Albumin/Globulin Ratio 1.2 Procalcitonin 28.7 H A. baumannii (PCR) Karin albicans (PCR) C. glabrata (PCR) C. krusei (PCR) C. parapsilosis (PCR) C. tropicalis (PCR) SARS-CoV-2 (PCR) Enterobacteriac sp PCR E. cloacae complex PCR Enterococcus sp PCR E. coli (PCR) H. influenzae (PCR) Klebsiella oxytoca PCR Klebsiella pneumoniae List. monocytogenes PCR N. meningitidis (PCR) Proteus species (PCR) Serratia marcescens PCR Staphylococcus sp PCR Staph aureus (PCR) mecA-Methicil Res Gene Streptococcus sp PCR Group A Strep (PCR) Strep agalactiae (PCR) Strep pneumoniae (PCR) P. aeruginosa (PCR) Julia/B-Vanco Res Genes KPC-Carbap Res Gene PCR PFSH Medical History Bladder cancer HLD (hyperlipidemia) HTN (hypertension) Lung cancer Surgical History H/O pneumonectomy H/O total cystectomy History of prostatectomy Family History Mother Hypertension Father Hypertension Social History household members: spouse Smoking Status: Never smoker alcohol intake: current Assessment & Plan Assessment & Plan narrative: Hospital day number 2 for suspected acute cystitis secondary to urostomy with tachycardia and fever. Patient is improved. Plan: Continue with IV ceftriaxone. Await blood cultures to determine organism and determine outpatient treatment. Likely home tomorrow. Continue with supportive care. Assessment 2. Hyperlipidemia Plan: Restart atorvastatin Assessment 3. Hypertension with blood pressure still a bit low. Plan: Continue to treat infectious process. Will go ahead and start diltiazem tonight. Will hold amlodipine until his blood pressure returns to normal. Assessment number for adrenal gland carcinoma in remission Plan: Follow Assessment 5. Lung cancer in remission Plan:: No symptoms. Assessment 6. Bladder cancer status post urostomy DVT prophylaxis plan continue Lovenox GI prophylaxis: Patient received famotidine 35 minute spent with patient reviewing his chart and discussing with positions. He was mistakenly admitted to the wrong service. His PCP is Dr. Cline. He has had previous UTIs. Time Spent With Patient Critical Care time: I spent a total of [] minutes of critical care time on this patient's care today; this time is exclusive of procedural time. Quality VTE Deep Vein Thrombosis/Pulmonary Embolism Present on Admission: No
[2021-07-18] MEDS: cefTRIAXone 2,000 MG in SODIUM CHLORIDE 0.9% 100 ML 200 ML IV (13:01)
[2021-07-18] MEDS: SODIUM CHLORIDE 0.9% 100 ML 200 ML (13:13)
[2021-07-18 16:00] VITALS: BP 114/62; PULSE 67; RESP 19; TEMP 36.7; O2SAT 94
[2021-07-18] MEDS: ACETAMINOPHEN 325 MG TABLET 975 MG PO (18:27)
[2021-07-18 20:10] VITALS: BP 112/65; PULSE 72; RESP 16; TEMP 37; O2SAT 97
[2021-07-18] MEDS: dilTIAZem CD 120 MG CAP PO (21:19)
[2021-07-18] MEDS: ATORVASTATIN 20 MG TABLET 40 MG PO (21:19)
[2021-07-18] MEDS: MELATONIN 3 MG TABLET 6 MG PO (22:24)
[2021-07-19 05:38] VITALS: BP 118/69; PULSE 69; RESP 16; TEMP 37.3; O2SAT 94
[2021-07-19 05:58] LABS: Add Manual Diff / Slide Review NO; Basophils Absolute Auto 0 /uL (0-100); Basophils Percent Auto 0.1 % (0-2); Eosinophils Absolute Auto 100 /uL (0-450); Eosinophils Percent Auto 0.9 % (2-4); Hematocrit 36.4 % (41-53); Hemoglobin 12.4 g/dL (13.5-17.5); Lymphocytes Absolute Auto 400 /uL (1100-4500); Mean Corpuscular HGB Conc 34.1 % (30-36); Mean Corpuscular Hemoglobin 34.6 PG (26-34); Mean Corpuscular Volume 101.7 fL (80-100); Monocytes Absolute Auto 800 /uL (0-900); Monocytes Percent Auto 10.7 % (3-14); Neutrophils Absolute Auto 5900 /uL (1500-7000); Neutrophils Percent Auto 82.3 % (50-75); Platelet Count 174 X10^3/uL (150-400); Red Blood Cell Count 3.58 X10^6/uL (4.5-5.9); Red Cell Distribution Width 13.2 % (11.6-14.8); White Blood Cell Count 7.2 X10^3/uL (4.5-11.0)
[2021-07-19 06:04] LABS: Alanine Aminotransferase 19 IU/L (<50); Albumin 3.3 g/dL (3.5-5.0); Albumin Globulin Ratio 1.1 (1.0-2.8); Alkaline Phosphatase 64 U/L (38-126); Aspartate Aminotransferase 27 IU/L (17-59); BUN Creatinine Ratio 14.7 (6-22); Bilirubin Total 0.5 mg/dL (0.2-1.3); Blood Urea Nitrogen 10 mg/dL (9-20); Calcium 7.9 mg/dL (8.4-10.2); Carbon Dioxide 23 mmol/L (22-32); Chloride 108 mmol/L (98-107); Estimated Glomerular Filt Rate > 60.0 mL/min (>60); Glucose 101 mg/dL (80-110); HEMOLYSIS < 15 (0-50); Potassium 3.1 mmol/L (3.4-5.1); Sodium 137 mmol/L (137-145); Total Protein 6.3 g/dL (6.3-8.2)
--- NOTE | 2021-07-19 07:38 | PM.PN.1 ---
Subjective Subjective Date Patient Seen: 07/19/21 Time Patient Seen: 07:38 Interval history: Patient did not sleep very well last night. He otherwise is denying any pain. No shortness of breath no chest pain. He is tolerating p.o. without difficulty he is not having fevers any longer. He is not having any rigors. Back pain is better. Twelve point review of system is negative otherwise Exam Vital Signs (past 8 hours): - 07/19/21 05:38 Temperature 99.2 F Pulse Rate 69 Respiratory Rate 16 Blood Pressure 118/69 Pulse Oximetry 94 Oxygen Delivery Method Nasal Cannula Oxygen Flow Rate 0 Narrative Exam Narrative: T-max 99.2?. Otherwise vital signs stable. Blood pressure still in the low 100s 1 teens. Alert and oriented x3 no apparent distress HEENT unremarkable Neck: Supple without adenopathy Chest: Clear to auscultation without wheezes rhonchi or crackles Cor: Regular rate and rhythm without a murmur Abdomen: Positive bowel sounds, soft, nontender Extremities: No edema pulses intact Objective Labs Result Diagrams: 07/19/21 05:15 07/19/21 05:15 Labs: Laboratory Results - last 24 hr 07/19/21 07/19/21 05:15 05:15 WBC 7.2 RBC 3.58 L Hgb 12.4 L Hct 36.4 L MCV 101.7 H MCH 34.6 H MCHC 34.1 RDW 13.2 Plt Count 174 Neut % (Auto) 82.3 H Lymph % (Auto) 6.0 L [place] % (Auto) 10.7 Eos % (Auto) 0.9 L Baso % (Auto) 0.1 Neut # (Auto) 5900 Lymph # (Auto) 400 L [place] # (Auto) 800 Eos # (Auto) 100 Baso # (Auto) 0 Sodium 137 Potassium 3.1 L Chloride 108 H Carbon Dioxide 23 BUN 10 Creatinine 0.68 Estimated GFR > 60.0 BUN/Creatinine Ratio 14.7 Glucose 101 Calcium 7.9 L Total Bilirubin 0.5 AST 27 ALT 19 Alkaline Phosphatase 64 Total Protein 6.3 Albumin 3.3 L Globulin 3.0 Albumin/Globulin Ratio 1.1 PFSH Medical History Bladder cancer HLD (hyperlipidemia) HTN (hypertension) Lung cancer Surgical History H/O pneumonectomy H/O total cystectomy History of prostatectomy Family History Mother Hypertension Father Hypertension Social History household members: spouse Smoking Status: Never smoker alcohol intake: current Assessment & Plan Assessment & Plan narrative: 70-year-old male with previous history of bladder cancer status post cystectomy with diverting urostomy now with UTI with bacteremia and associated hypotension improving in Assessment 1. UTI with bacteremia cultures preliminary show Gram-negative bacilli the urine in E coli in the blood. Clinically he is improving on current ceftriaxone Plan: Continue IV ceftriaxone. Once we have the final cultures will then discharge home on oral antibiotics. Will continue with other current treatment. Assessment 2. Hypokalemia Plan: Will go ahead and give 20 mEq of potassium and recheck later Assessment 3. Hyperlipidemia Plan: Continue on atorvastatin Assessment 4. Hypertension with still low blood pressures. Diltiazem was started yesterday. Plan: Continue diltiazem Continue holding amlodipine for now. 40 minutes spent with patient today, discussing with nursing meeting with patient and formulating plan. Time Spent With Patient Critical Care time: I spent a total of [] minutes of critical care time on this patient's care today; this time is exclusive of procedural time. Quality VTE Deep Vein Thrombosis/Pulmonary Embolism Present on Admission: No
[2021-07-19 07:45] VITALS: BP 121/68; PULSE 67; RESP 18; TEMP 36.8; O2SAT 94
[2021-07-19] MEDS: POTASSIUM CHLORIDE 20 MEQ TAB PO (08:07)
[2021-07-19] MEDS: ENOXAPARIN 40 MG/0.4 ML SYRINGE SUBCUT (08:07)
[2021-07-19] MEDS: cefTRIAXone 2,000 MG in SODIUM CHLORIDE 0.9% 100 ML 200 ML IV (11:56)
[2021-07-19 12:50] VITALS: BP 123/47; PULSE 62; RESP 20; TEMP 36.8; O2SAT 92
[2021-07-19 15:15] VITALS: BP 124/75; PULSE 95; RESP 21; TEMP 36.2; O2SAT 97
--- NOTE | 2021-07-19 15:25 | CM.DPNOTE ---
DCP Cont: Patient will be here another day on IV ABO for his UTI. Provider has indicated that once cultures are completed, this will determine which oral antibiotic that patient can go home on. Patient is independent at his baseline. P: DCP to continue to follow for any needs. Angelique Marquis RN/[employer]
--- NOTE | 2021-07-19 15:52 | P.DS_ITS ---
History of Present Illness History of Present Illness Chief complaint: fever/UTI Discharge Providers Provider Date of admission: 07/17/21 15:03 Discharge Date: 07/19/21 Primary care physician: Neisha Cline MD Discharge provider: Loulou Roe MD Summary Hospital Course Discharge Diagnosis: UTI secondary to E coli organism with probable bacteremia with associated hypotension, fever, improved. Urine culture showing pansensitive E coli Hypokalemia Acute on chronic anemia Distant bladder cancer Distant lung cancer Distant adrenal cancer Hospital Course: Patient admitted to the hospital with fever and rigors found to have UTI with bacteria in blood as well. He had associated hypotension. He was treated with IV ceftriaxone. He was afebrile for over 24 hours prior to discharge. He was found to have hypokalemia was given 1 dose of potassium. His chronic anemia was worsened. His blood pressure was low so his blood pressure medications were held. Cardizem CD was started on 07/19/2019 to hospital day 2 and amlodipine was held throughout hospital stay and he is to start this as an outpatient. Status at Discharge Cognitive/behavioral status at discharge: oriented Functional status at discharge: independent ambulation Overall status at discharge: patient is progressing back to baseline Exam Vital Signs (past 8 hours): - 07/19/21 12:50 Temperature 98.3 F Pulse Rate 62 Respiratory Rate 20 Blood Pressure 123/47 L Pulse Oximetry 92 Oxygen Delivery Method Nasal Cannula Oxygen Flow Rate 0 Narrative Exam Narrative: Exam unchanged from earlier today Afebrile, vital signs stable blood pressure coming up Objective Labs Result Diagrams: 07/19/21 05:15 07/19/21 05:15 Labs: Laboratory Results - last 24 hr 07/19/21 07/19/21 05:15 05:15 WBC 7.2 RBC 3.58 L Hgb 12.4 L Hct 36.4 L MCV 101.7 H MCH 34.6 H MCHC 34.1 RDW 13.2 Plt Count 174 Neut % (Auto) 82.3 H Lymph % (Auto) 6.0 L [place] % (Auto) 10.7 Eos % (Auto) 0.9 L Baso % (Auto) 0.1 Neut # (Auto) 5900 Lymph # (Auto) 400 L [place] # (Auto) 800 Eos # (Auto) 100 Baso # (Auto) 0 Sodium 137 Potassium 3.1 L Chloride 108 H Carbon Dioxide 23 BUN 10 Creatinine 0.68 Estimated GFR > 60.0 BUN/Creatinine Ratio 14.7 Glucose 101 Calcium 7.9 L Total Bilirubin 0.5 AST 27 ALT 19 Alkaline Phosphatase 64 Total Protein 6.3 Albumin 3.3 L Globulin 3.0 Albumin/Globulin Ratio 1.1 PFSH Medical History Bladder cancer HLD (hyperlipidemia) HTN (hypertension) Lung cancer Surgical History H/O pneumonectomy H/O total cystectomy History of prostatectomy Family History Mother Hypertension Father Hypertension Social History household members: spouse Smoking Status: Never smoker alcohol intake: current Discharge Assessment & Plan Assessment and Plan Assessment: UTI secondary to E coli organism with probable bacteremia with associated hypotension, fever, improved. Urine culture showing pansensitive E coli Hypokalemia Acute on chronic anemia Distant bladder cancer Distant lung cancer Distant adrenal cancer New finding of cystic lesion on pancreas Plan of Treatment: Discharge to home Follow-up with Dr. Cline next week Discharge medications include outpatient medications. Patient will start amlodipine tomorrow. Patient will be on Augmentin 875 mg twice daily for 14 days. Patient will call or come in with recurrent infectious symptoms. Patient will continue all other outpatient medications Due to low potassium patient needs a BMP and a CBC next week Patient will need an outpatient CT MRCP to evaluate possible pancreatic cyst Discharge Plan Discharge Plan Patient Disposition: Home Discharge orders & Medications Prescriptions: New amoxicillin-pot clavulanate 875-125 mg tablet 1 tab PO BID Qty: 28 0RF Continued amlodipine [Norvasc] 5 MG tablet 5 mg PO BEDTIME Qty: 0 0RF atorvastatin [Lipitor] 40 MG tablet 40 mg PO HS Qty: 0 0RF diltiazem HCl 120 MG capsule,extended release 24hr 120 mg PO HS Qty: 0 0RF aspirin 81 mg Tablet 81 mg PO BID 0RF Follow up/Referrals: Neisha Cline MD [Primary Care Provider] - Discharge Health Status Multidrug resistant organism: No MDRO Diet/Activity/Treatments Diet: Diet as Tolerated Activity: as tolerated Discharge Data Primary Care Provider: Neisha Cline Attending Provider: Eyad Hernandez VTE Deep Vein Thrombosis/Pulmonary Embolism Present on Admission: No
== END 2021-07-19 16:20 | disposition home or self-care (01) ==
LOC: ED 09:02 → AC 15:04
PROVIDERS: Admitting Provider Internal Medicine; Emergency Provider Emergency Medicine; PCP Student in an Organized Health Care Education/Training Program; Referring Provider Emergency Medicine; Visit Provider Internal Medicine
DX: N30.00 Acute cystitis without hematuria (principal); B96.20 Unspecified Escherichia coli [E. coli] as the cause of diseases classified elsewhere; E87.6 Hypokalemia; I95.9 Hypotension, unspecified; I10 Essential (primary) hypertension; E78.5 Hyperlipidemia, unspecified; D64.89 Other specified anemias; Z85.51 Personal history of malignant neoplasm of bladder; Z85.118 Personal history of other malignant neoplasm of bronchus and lung; Z85.89 Personal history of malignant neoplasm of other organs and systems; Z20.822 Contact with and (suspected) exposure to COVID-19
CPT/HCPCS: 36415; 71045; 74177; 80053; 81001; 83605; 83690; 84145; 84484; 85025; 87040; 87077; 87086; 87150; 87186; 87205; 87635; 93005; 96365; 96366; 96367; 96372; 96375; 99285; 99291; C9803; G0378; J0696; J1650; J1956; J2405; Q9967

== ENCOUNTER → 2022-08-11 11:58 | Outpatient (CLI) | payer MEDICARE, OTHER, SELFPAY ==
[2021-07-17 15:53] VITALS: BMI 22.4
--- NOTE | 2022-08-11 | DI.US.S_ITS ---
PROCEDURE: US RETRO PERITONEAL LIMITED INDICATIONS: POSSIBLE AAA TECHNIQUE: Real time scanning was performed of the aorta and iliac arteries, with image documentation. COMPARISON: None. FINDINGS: Aorta: Proximal aortic diameter measures 2.2 cm. Mid-aorta measures 1.7 cm. Distal aortic diameter is 1.6 cm. Iliac arteries: Right common iliac artery measures 1.2 cm. Left common iliac artery measures 1.2 cm. IMPRESSION: No aneurysmal dilatation or ectasia of the abdominal aorta or iliac arteries. Dictated by: Simran Barnes M.D. on 08/11/2022 at 14:27 Approved by: Simran Barnes M.D. on 08/11/2022 at 14:27
== END ==
PROVIDERS: PCP Family Medicine; Referring Provider Family Medicine; Visit Provider Family Medicine
DX: Z13.6 Encounter for screening for cardiovascular disorders (principal)
CPT/HCPCS: 76775

== ENCOUNTER → 2023-05-13 13:06 | Outpatient (CLI) | payer MEDICARE, OTHER, SELFPAY ==
[2023-05-13 13:06] VITALS: BMI 22.4
[2023-05-13 14:17] LABS: Cholesterol 162 mg/dL (140-199); HDL Cholesterol 100 mg/dL (40-60); LDL Cholesterol Calculated 47 mg/dL (<100); Triglycerides 75 mg/dL (35-150)
== END ==
LOC: LAB 13:08
PROVIDERS: PCP Family Medicine; Referring Provider Internal Medicine; Visit Provider Internal Medicine
DX: E78.00 Pure hypercholesterolemia, unspecified (principal)
CPT/HCPCS: 36415; 80061

== ENCOUNTER → 2023-11-06 13:14 | Outpatient (CLI) | payer MEDICARE, OTHER, SELFPAY ==
[2023-05-13 13:06] VITALS: BMI 22.4
[2023-11-06 13:57] LABS: Influenza A - CEPHEID Flu A NEGATIVE (NEGATIVE); Influenza B - CEPHEID Flu B NEGATIVE (NEGATIVE); Respiratory Syncytial Virus Negative (Negative)
[2023-11-06 14:16] LABS: COVID-19 CEPHEID 4-PLEX PCR Negative (Negative)
== END ==
PROVIDERS: PCP Family Medicine; Visit Provider Registered Nurse
DX: R05.9 Cough, unspecified (principal)
CPT/HCPCS: 0241U

== ENCOUNTER 2023-11-07 04:53 | Emergency (ER) | payer MEDICARE, OTHER, SELFPAY ==
[2023-05-13 13:06] VITALS: BMI 22.4
[2023-11-07] VITALS (8 sets, daily range): BP systolic 130–151; BP diastolic 67–81; PULSE 82–104; RESP 16–22; TEMP 36.7–37.7; O2SAT 91–96; BMI 22.9
--- NOTE | 2023-11-07 05:15 | DI.RAD.S_ITS ---
PROCEDURE: XR CHEST 1V INDICATIONS: fever, cough x4 days TECHNIQUE: One view of the chest was acquired. COMPARISON: [facility], CR, XR CHEST 1V, 07/17/2021, 9:05. FINDINGS: Surgical changes and devices: None. Lungs and pleura: Slight hyperinflation and upper lobe hyperlucency. Mild coarsening of the interstitial markings. No focal consolidation, effusion, or pneumothorax. Mediastinum: Mediastinal contours appear normal. Heart size is normal. Bones and chest wall: No suspicious bony lesions. Overlying soft tissues appear unremarkable. IMPRESSION: No acute cardiopulmonary abnormality is seen. Final interpretation is concordant with preliminary report. Dictated by: Corazon Abreu M.D. on 11/07/2023 at 8:42 Approved by: Corazon Abreu M.D. on 11/07/2023 at 8:43
--- NOTE | 2023-11-07 05:16 | ED_ITS ---
HPI - Fever <Janene Trevino MD - Last Filed: 11/07/23 15:27> General Chief Complaint: Fever Stated Complaint: high fever 101.6 Time Seen by Provider: 11/07/23 04:55 Source: patient Mode of arrival: Ambulatory History of Present Illness HPI Narrative: 73-year-old male with history of bladder cancer status post resection and urostomy placement (in remission >5 years) presents by private vehicle from home for 4 days of nonproductive cough and 1 day of fever, T-max 101.6? at home. Patient states that he does get urinary tract infections once every 2-3 years and thinks that he may have another urinary tract infection at this time. Took Tylenol approximately 3 hours prior to arrival. Related Data Home Medications Medication Instructions Recorded Confirmed amlodipine 5 mg tablet (Norvasc) 5 mg PO BEDTIME ##0 05/19/16 07/18/21 atorvastatin 40 mg tablet (Lipitor) 40 mg PO HS ##0 05/19/16 07/17/21 diltiazem HCl 120 mg 120 mg PO HS ##0 05/19/16 07/17/21 capsule,extended release 24 hr aspirin 81 mg tablet 81 mg PO BID 07/17/21 07/17/21 Previous Rx's Medication Instructions Recorded amoxicillin 875 mg-potassium 1 tab PO BID #28 tabs 07/19/21 clavulanate 125 mg tablet ondansetron 4 mg disintegrating 4 mg PO Q6H PRN nausea and 11/07/23 tablet vomiting #10 tabs Allergies Allergy/AdvReac Type Severity Reaction Status Date / Time No Known Allergies Allergy Uncoded 11/06/23 13:12 Patient History <Janene Trevino MD - Last Filed: 11/07/23 15:27> Medical History Lung cancer HLD (hyperlipidemia) HTN (hypertension) Bladder cancer Surgical History H/O pneumonectomy History of prostatectomy H/O total cystectomy Family History Mother Hypertension Father Hypertension Social History household members: spouse Smoking Status: Never smoker alcohol intake: current Smoking Status: Never smoker alcohol intake frequency: 0-2 drinks per day Substance Use Type: does not use Exam <Janene Trevino MD - Last Filed: 11/07/23 15:27> Initial Vital Signs Initial Vital Signs: Vital Signs Temperature 99.8 F H 11/07/23 05:02 Pulse Rate 104 H 11/07/23 05:02 Respiratory Rate 20 11/07/23 05:02 Blood Pressure 131/69 11/07/23 05:02 Pulse Oximetry 95 11/07/23 05:02 Oxygen Delivery Method Room Air 11/07/23 05:02 Const: Awake, alert, no acute distress Cardiac: regular rate, regular rhythm RESP: unlabored, clear bilaterally, no wheezing GI: Soft, nontender, nondistended, urostomy in place with clear yellow urine Skin: Warm, Dry, intact, no rashes Neuro: AO x3, CN II-XII grossly intact, moves all extremities <Ganesh Uriostegui DO - Last Filed: 11/07/23 08:05> Initial Vital Signs Initial Vital Signs: Vital Signs Temperature 99.8 F H 11/07/23 05:02 Pulse Rate 104 H 11/07/23 05:02 Respiratory Rate 20 11/07/23 05:02 Blood Pressure 131/69 11/07/23 05:02 Pulse Oximetry 95 11/07/23 05:02 Oxygen Delivery Method Room Air 11/07/23 05:02 Course <Janene Trevino MD - Last Filed: 11/07/23 15:27> Orders Ordered: Discontinued Medications Sodium Chloride (Normal Saline 0.9%) 1,000 mls @ 200 mls/hr IV CONT ELADIO Last Infusion: 11/07/23 08:36 Dose: 0 mls/hr Documented By: Admin: 11/07/23 05:55 Dose: 200 mls/hr Documented By: Ceftriaxone Sodium 2,000 mg/ (Sodium Chloride) 100 mls @ 200 mls/hr IV NOW ONE Stop: 11/07/23 05:16 Last Infusion: 11/07/23 06:24 Dose: Infused Documented By: Admin: 11/07/23 05:54 Dose: 200 mls/hr Documented By: Vital Signs Vital signs: Vital Signs - 8 hr 11/07/23 07:30 07/15/24 07:30 11/07/23 08:00 Temperature Pulse Rate 97 H 96 H Respiratory Rate 22 22 Blood Pressure 145/78 H Pulse Oximetry 91 92 Oxygen Delivery Method 11/07/23 08:32 Temperature 98.1 F Pulse Rate 94 H Respiratory Rate 16 Blood Pressure 142/81 H Pulse Oximetry 93 Oxygen Delivery Method Room Air <Ganesh Uriostegui DO - Last Filed: 11/07/23 08:05> Orders Ordered: Discontinued Medications Sodium Chloride (Normal Saline 0.9%) 1,000 mls @ 200 mls/hr IV CONT ELADIO Last Infusion: 11/07/23 08:36 Dose: 0 mls/hr Documented By: Admin: 11/07/23 05:55 Dose: 200 mls/hr Documented By: Ceftriaxone Sodium 2,000 mg/ (Sodium Chloride) 100 mls @ 200 mls/hr IV NOW ONE Stop: 11/07/23 05:16 Last Infusion: 11/07/23 06:24 Dose: Infused Documented By: Admin: 11/07/23 05:54 Dose: 200 mls/hr Documented By: Vital Signs Vital signs: Vital Signs - 8 hr 11/07/23 07:30 11/07/23 07:30 11/07/23 08:00 Temperature Pulse Rate 97 H 96 H Respiratory Rate 22 22 Blood Pressure 145/78 H Pulse Oximetry 91 92 Oxygen Delivery Method 11/07/23 08:32 Temperature 98.1 F Pulse Rate 94 H Respiratory Rate 16 Blood Pressure 142/81 H Pulse Oximetry 93 Oxygen Delivery Method Room Air MDM - Fever <Janene Trevino MD - Last Filed: 11/07/23 15:27> Differential Diagnosis Differential diagnosis: Likely cellulitis, fever of unknown origin and gastroenteritis Lab Data 11/07/23 05:45 11/07/23 05:45 Labs: Lab Results 11/07/23 11/07/23 11/07/23 Range/Units 05:45 05:50 06:05 WBC 5.8 (4.5-11.0) X10^3/uL RBC 4.17 L (4.5-5.9) X10^6/uL Hgb 14.2 (13.5-17.5) g/dL Hct 40.7 L (41-53) % MCV 97.5 (80-100) fL MCH 34.2 H (26-34) PG MCHC 35.0 (30-36) % RDW 13.0 (11.6-14.8) % Plt Count 202 (150-400) X10^3/uL Neut % (Auto) 65.3 (50-75) % Lymph % (Auto) 11.1 L (25-40) % [place] % (Auto) 14.4 H (3-14) % Eos % (Auto) 8.6 H (2-4) % Baso % (Auto) 0.6 (0-2) % Neut # (Auto) 3800 (0862-3659) /uL Lymph # (Auto) 600 L (0639-2587) /uL [place] # (Auto) 800 (0-900) /uL Eos # (Auto) 500 H (0-450) /uL Baso # (Auto) 0 (0-100) /uL PT 12.1 (9.4-12.5) SECONDS INR 1.1 (0.9-1.3) Sodium 134 L (137-145) mmol/L Potassium 3.6 (3.4-5.1) mmol/L Chloride 103 (98-107) mmol/L Carbon Dioxide 26 (22-32) mmol/L BUN 9 (9-20) mg/dL Creatinine 0.72 (0.66-1.25) mg/dL Estimated GFR > 60 (>60) mL/min BUN/Creatinine Ratio 12.5 (6-22) Glucose 127 H (80-110) mg/dL Lactate 1.4 (0.7-2.1) mmol/L Calcium 8.5 (8.4-10.2) mg/dL Total Bilirubin 0.8 (0.2-1.3) mg/dL AST 28 (17-59) IU/L ALT 20 (<50) IU/L Alkaline Phosphatase 85 (38-126) U/L Total Creatine Kinase 53 L (55-170) U/L Troponin I < 0.012 (0.01-0.034) ng/mL Total Protein 6.9 (6.3-8.2) g/dL Albumin 4.0 (3.5-5.0) g/dL Globulin 2.9 (1.7-4.1) g/dL Albumin/Globulin Ratio 1.4 (1.0-2.8) Procalcitonin 0.099 (<0.5) ng/mL Urine Color Yellow Urine Appearance Clear Urine pH 7.0 (4.5-8.0) Ur Specific [place] <=1.005 (1.000-1.035) Urine Protein Negative (Negative) Urine Glucose (UA) Negative (Negative) g/dL Urine Ketones Negative (NEGATIVE) Urine Occult Blood 1+ H (Negative) Urine Nitrate Negative (Negative) Urine Bilirubin Negative (NEGATIVE) Urine Urobilinogen 0.2 (0.2) E.U./dL Ur Leukocyte Esterase 2+ H (NEGATIVE) Urine RBC 0-1/hpf (0-5/HPF) Urine WBC 0-1/hpf (0-5/HPF) Ur Squamous Epith Cells 0-1 /hpf (0-5/HPF) Urine Bacteria Occasional (0-1) (None) Ur Culture Indicated? Specimen cultured Vol Urine Centrifuged 10ml (spun) Chlamy pneumoniae PCR Not detected (Not Detect) Adenovirus (PCR) Not detected (Not Detect) B.parapertussis DNA PCR Not detected (Not Detecte) Coronavirus OC43 (PCR) Not detected (Not Detect) Coronavirus HKU1 (PCR) Not detected (Not Detect) Coronavirus 229E (PCR) Not detected (Not Detect) SARS-CoV-2 (PCR) Not detected (Not Detecte) Coronavirus NL63 (PCR) Not detected (Not Detect) Human Metapneumovir PCR Detected H (Not Detect) Influenza Type A (PCR) Not detected (Not Detect) Influenza Type B (PCR) Not detected (Not Detect) M. pneumoniae (PCR) Not detected (Not Detect) Parainfluenza 1 (PCR) Not detected (Not Detect) Parainfluenza 2 (PCR) Not detected (Not Detect) Parainfluenza 3 (PCR) Not detected (Not Detect) Parainfluenza 4 (PCR) Not detected (Not Detect) RSV (PCR) Not detected (Not Detect) Entero/Rhino (PCR) Not detected (Not Detect) MDM Narrative Medical decision making narrative: Nontoxic appearing patient with 4 days of cough and 2 days of fever. Exam is fairly benign, patient's suspect that he may have a urinary tract infection but urine in urostomy bag is clear and yellow. Reporting cough, however lungs are clear to auscultation bilaterally. Due to patient's history and reported temperature at home blood cultures, lactic acid, procalcitonin drawn and sent to lab. Empiric Rocephin ordered for coverage. Laboratory work so far unremarkable with no leukocytosis, no lactic acidosis, procalcitonin below level suspicious for bacterial infection. Chest x-ray negative for acute findings. Urinalysis not convincing for sign of infection. Pending respiratory panel., care of patient signed to Dr. Uriostegui at 0700 Dr uriostegui: Received turned over. Review patient's history and physical and workup up to this point. Patient does not have indication of urinary tract infection. Chest x-ray is unremarkable. He was positive for human metapneumovirus which most likely explains his presenting symptoms today. He has not hypoxic. No indication for antibiotics. Will discharge patient home with symptom treatment. Both he and is expressed understanding and agreement with plan. <Ganesh Uriostegui, DO - Last Filed: 11/07/23 08:05> Lab Data Labs: Lab Results 11/07/23 11/07/23 11/07/23 Range/Units 05:45 05:50 06:05 WBC 5.8 (4.5-11.0) X10^3/uL RBC 4.17 L (4.5-5.9) X10^6/uL Hgb 14.2 (13.5-17.5) g/dL Hct 40.7 L (41-53) % MCV 97.5 (80-100) fL MCH 34.2 H (26-34) PG MCHC 35.0 (30-36) % RDW 13.0 (11.6-14.8) % Plt Count 202 (150-400) X10^3/uL Neut % (Auto) 65.3 (50-75) % Lymph % (Auto) 11.1 L (25-40) % [place] % (Auto) 14.4 H (3-14) % Eos % (Auto) 8.6 H (2-4) % Baso % (Auto) 0.6 (0-2) % Neut # (Auto) 3800 (8798-8895) /uL Lymph # (Auto) 600 L (2921-0715) /uL [place] # (Auto) 800 (0-900) /uL Eos # (Auto) 500 H (0-450) /uL Baso # (Auto) 0 (0-100) /uL PT 12.1 (9.4-12.5) SECONDS INR 1.1 (0.9-1.3) Sodium 134 L (137-145) mmol/L Potassium 3.6 (3.4-5.1) mmol/L Chloride 103 (98-107) mmol/L Carbon Dioxide 26 (22-32) mmol/L BUN 9 (9-20) mg/dL Creatinine 0.72 (0.66-1.25) mg/dL Estimated GFR > 60 (>60) mL/min BUN/Creatinine Ratio 12.5 (6-22) Glucose 127 H (80-110) mg/dL Lactate 1.4 (0.7-2.1) mmol/L Calcium 8.5 (8.4-10.2) mg/dL Total Bilirubin 0.8 (0.2-1.3) mg/dL AST 28 (17-59) IU/L ALT 20 (<50) IU/L Alkaline Phosphatase 85 (38-126) U/L Total Creatine Kinase 53 L (55-170) U/L Troponin I < 0.012 (0.01-0.034) ng/mL Total Protein 6.9 (6.3-8.2) g/dL Albumin 4.0 (3.5-5.0) g/dL Globulin 2.9 (1.7-4.1) g/dL Albumin/Globulin Ratio 1.4 (1.0-2.8) Procalcitonin 0.099 (<0.5) ng/mL Urine Color Yellow Urine Appearance Clear Urine pH 7.0 (4.5-8.0) Ur Specific [place] <=1.005 (1.000-1.035) Urine Protein Negative (Negative) Urine Glucose (UA) Negative (Negative) g/dL Urine Ketones Negative (NEGATIVE) Urine Occult Blood 1+ H (Negative) Urine Nitrate Negative (Negative) Urine Bilirubin Negative (NEGATIVE) Urine Urobilinogen 0.2 (0.2) E.U./dL Ur Leukocyte Esterase 2+ H (NEGATIVE) Urine RBC 0-1/hpf (0-5/HPF) Urine WBC 0-1/hpf (0-5/HPF) Ur Squamous Epith Cells 0-1 /hpf (0-5/HPF) Urine Bacteria Occasional (0-1) (None) Ur Culture Indicated? Specimen cultured Vol Urine Centrifuged 10ml (spun) Chlamy pneumoniae PCR Not detected (Not Detect) Adenovirus (PCR) Not detected (Not Detect) B.parapertussis DNA PCR Not detected (Not Detecte) Coronavirus OC43 (PCR) Not detected (Not Detect) Coronavirus HKU1 (PCR) Not detected (Not Detect) Coronavirus 229E (PCR) Not detected (Not Detect) SARS-CoV-2 (PCR) Not detected (Not Detecte) Coronavirus NL63 (PCR) Not detected (Not Detect) Human Metapneumovir PCR Detected H (Not Detect) Influenza Type A (PCR) Not detected (Not Detect) Influenza Type B (PCR) Not detected (Not Detect) M. pneumoniae (PCR) Not detected (Not Detect) Parainfluenza 1 (PCR) Not detected (Not Detect) Parainfluenza 2 (PCR) Not detected (Not Detect) Parainfluenza 3 (PCR) Not detected (Not Detect) Parainfluenza 4 (PCR) Not detected (Not Detect) RSV (PCR) Not detected (Not Detect) Entero/Rhino (PCR) Not detected (Not Detect) MDM Narrative Medical decision making narrative: Nontoxic appearing patient with 4 days of cough and 2 days of fever. Exam is fairly benign, patient's suspect that he may have a urinary tract infection but urine in urostomy bag is clear and yellow. Reporting cough, however lungs are clear to auscultation bilaterally. Due to patient's history and reported temperature at home blood cultures, lactic acid, procalcitonin drawn and sent to lab. Empiric Rocephin ordered for coverage. Laboratory work so far unremarkable with no leukocytosis, no lactic acidosis, procalcitonin below level suspicious for bacterial infection. Chest x-ray negative for acute findings. Urinalysis not convincing for sign of infection. Pending respiratory panel., Dr uriostegui: Received turned over. Review patient's history and physical and workup up to this point. Patient does not have indication of urinary tract infection. Chest x-ray is unremarkable. He was positive for human metapneumovirus which most likely explains his presenting symptoms today. He has not hypoxic. No indication for antibiotics. Will discharge patient home with symptom treatment. Both he and is expressed understanding and agreement with plan. Discharge Plan Departure Patient Disposition: Home Clinical Impression: Acute bronchiolitis due to human metapneumovirus Instructions: DI for Fever (Symptom) -- Adult Activity Restrictions/Additional Instructions: You can take Tylenol and/or ibuprofen for any fevers or body aches. Be sure that you were increasing your fluid intake. Continue all of your other medications as directed. Return to the emergency department for new symptoms. Prescriptions: New ondansetron 4 mg tablet,disintegrating 4 mg PO Q6H PRN (Reason: nausea and vomiting) Qty: 10 0RF No Action amlodipine [Norvasc] 5 MG tablet 5 mg PO BEDTIME Qty: 0 atorvastatin [Lipitor] 40 MG tablet 40 mg PO HS Qty: 0 diltiazem HCl 120 MG capsule,extended release 24hr 120 mg PO HS Qty: 0 aspirin 81 mg Tablet 81 mg PO BID amoxicillin-pot clavulanate 875-125 mg tablet 1 tab PO BID Qty: 28 0RF Referrals: Bruce Crowder MD [Primary Care Provider] - Stand Alone Forms: Patient Portal/API
[2023-11-07] MEDS: cefTRIAXone 2,000 MG in SODIUM CHLORIDE 0.9% 100 ML 200 MG IV (05:54)
[2023-11-07] MEDS: SODIUM CHLORIDE 0.9% 1,000 ML 200 ML IV (05:55)
[2023-11-07 06:17] LABS: Add Manual Diff / Slide Review NO; Basophils Absolute Auto 0 /uL (0-100); Basophils Percent Auto 0.6 % (0-2); Eosinophils Absolute Auto 500 /uL (0-450); Eosinophils Percent Auto 8.6 % (2-4); Hematocrit 40.7 % (41-53); Hemoglobin 14.2 g/dL (13.5-17.5); Lymphocytes Absolute Auto 600 /uL (1100-4500); Lymphocytes Percent Auto 11.1 % (25-40); Mean Corpuscular Hemoglobin 34.2 PG (26-34); Mean Corpuscular Volume 97.5 fL (80-100); Monocytes Absolute Auto 800 /uL (0-900); Monocytes Percent Auto 14.4 % (3-14); Neutrophils Absolute Auto 3800 /uL (1500-7000); Neutrophils Percent Auto 65.3 % (50-75); Platelet Count 202 X10^3/uL (150-400); Red Blood Cell Count 4.17 X10^6/uL (4.5-5.9); White Blood Cell Count 5.8 X10^3/uL (4.5-11.0)
[2023-11-07 06:24] LABS: Appearance Urine UA CLEAR; Bilirubin Urine UA NEGATIVE (NEGATIVE); Color Urine UA YELLOW; Glucose Urine UA NEGATIVE (Negative); Ketones Urine UA NEGATIVE (NEGATIVE); Leukocyte Esterase Urine UA 2+ (NEGATIVE); Nitrite Urine UA NEGATIVE (Negative); Occult Blood Urine UA 1+ (Negative); Protein Urine UA NEGATIVE (Negative); Specific Gravity Urine UA <=1.005 (1.000-1.035); Urobilinogen Urine UA 0.2 E.U./dL (0.2)
[2023-11-07 06:33] LABS: Lactate (Lactic Acid) 1.4 mmol/L (0.7-2.1)
[2023-11-07 06:34] LABS: Alanine Aminotransferase 20 IU/L (<50); Albumin Globulin Ratio 1.4 (1.0-2.8); Alkaline Phosphatase 85 U/L (38-126); Aspartate Aminotransferase 28 IU/L (17-59); BUN Creatinine Ratio 12.5 (6-22); Bilirubin Total 0.8 mg/dL (0.2-1.3); Blood Urea Nitrogen 9 mg/dL (9-20); Calcium 8.5 mg/dL (8.4-10.2); Carbon Dioxide 26 mmol/L (22-32); Chloride 103 mmol/L (98-107); Creatine Kinase 53 U/L (55-170); Estimated Glomerular Filt Rate > 60 mL/min (>60); Globulin 2.9 g/dL (1.7-4.1); Glucose 127 mg/dL (80-110); HEMOLYSIS < 15 (0-50); Potassium 3.6 mmol/L (3.4-5.1); Sodium 134 mmol/L (137-145); Total Protein 6.9 g/dL (6.3-8.2)
[2023-11-07 06:36] LABS: INR 1.1 (0.9-1.3); Prothrombin Time 12.1 SECONDS (9.4-12.5)
[2023-11-07 06:42] LABS: Bacteria Urine Occasional (0-1); Culture Indicated Urine Specimen Cultured; RBC Urine 0-1/HPF (0-5/HPF); Squamous Epithelial Cell Urine 0-1 /HPF (0-5/HPF); Urine Volume 10mL (spun); WBC Urine 0-1/HPF (0-5/HPF)
[2023-11-07 06:46] LABS: Troponin I < 0.012 ng/mL (0.01-0.034)
[2023-11-07 06:50] LABS: Procalcitonin 0.099 ng/mL (<0.5)
[2023-11-07 07:53] LABS: Adenovirus Not Detected (Not Detect); B. parapertussis Not Detected (Not Detecte); Bordetella pertussis Not Detected (Not Detect); Chlamydophila pneumoniae Not Detected (Not Detect); Coronavirus 229E Not Detected (Not Detect); Coronavirus HKU1 Not Detected (Not Detect); Coronavirus NL 63 Not Detected (Not Detect); Coronavirus OC43 Not Detected (Not Detect); Human Metapneumovirus Detected (Not Detect); Human Rhinovirus/Enterovirus Not Detected (Not Detect); Influenza A Not Detected (Not Detect); Influenza B Not Detected (Not Detect); Mycoplasma pneumoniae Not Detected (Not Detect); Parainfluenza Virus 1 Not Detected (Not Detect); Parainfluenza Virus 2 Not Detected (Not Detect); Parainfluenza Virus 3 Not Detected (Not Detect); Parainfluenza Virus 4 Not Detected (Not Detect); Respiratory Syncytial Virus Not Detected (Not Detect); SARS- CoV-2 Not Detected (Not Detecte)
== END 2023-11-07 08:35 | disposition home or self-care (01) ==
PROVIDERS: Emergency Medicine; Emergency Provider Emergency Medicine; PCP Family Medicine
DX: J21.1 Acute bronchiolitis due to human metapneumovirus (principal); Z11.52 Encounter for screening for COVID-19
CPT/HCPCS: 36415; 71045; 80053; 81001; 82550; 83605; 84145; 84484; 85025; 85610; 87040; 87086; 87633; 96365; 99284; J0696